=== PATIENT | female | born 1975 | race Caucasian/White ===

== ENCOUNTER 2017-02-07 13:05 | Emergency (ER) | payer MEDICAID ==
[~2017-02-07] VITALS: Ht 149.9 cm; Wt 58.0 kg
[~2017-02-07 13:05] MED LIST: CIPR-280 PO; DIPH25CA84 PO; OXYB15TA PO
[2017-02-07 13:08] VITALS: Ht 149.9 cm; Wt 58.0 kg
--- OUTSIDE RECORDS SUMMARY | 2017-02-07 13:09 | XMS REPORT | Summary of Care ---
Author Author Lei Bravo D.O. Organization Unknown Address [address] [place], [place] [id number] Phone Unavailable Care Team Providers Care Electrical Wirer Name Role Phone Lei Bravo D.O. 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) Status: Active Non-pressure chronic ulcer of other part of right foot, limited to breakdown of skin (707.15, L97.511) Status: Active Chronic low back pain (724.2, M54.5) Status: Active Urinary incontinence, mixed (788.33, N39.46) Status: Active Decubitus ulcer of right buttock, stage 3 (707.05, L89.313) Status: Active 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 * Start 16-Nov-2015 Active TraMADol HCl - 50 MG Oral Tablet take 1 tablet every 12 hours as needed * Quantity: 60 Refills: 0 Lei Bravo D.O. * Start 16-Nov-2015 Active Allergies and Adverse Reactions Name Dates Details Latex Exam Gloves MISC (Allergy) Status: Active Morphine Derivatives (Allergy) Status: Active Past Medical History Name Dates Details History of Hepatitis B virus infection, unspecified chronicity (070.30, B19.10 ) Status: Resolved Procedures Procedure Dates Details History of Laparoscopic Sling Operation For Stress Incontinence THYROID STIM. HORMONE 3602 Ordered: 23-Nov-2016 LIPID PROFILE 1184 Ordered: 23-Nov-2016 Comprehensive Metabolic Panel 1212 Ordered: 23-Nov-2016 CBC w/ Auto Diff 7150 Ordered: 23-Nov-2016 Immunization Name Dates Details Diphtheria-Tetanus Toxoids 6.7-5 LFU/0.5ML INJ on: 11-Nov-2014 Social History Name Dates Details - Status: Name Dates Details Current every day smoker Current every day smoker Vital Signs Date Test Result Details 24-Nov-2016 13:26 BP Systolic 112 mm[Hg] Status: Comments: Location: ; Position: BP Diastolic 70 mm[Hg] Status: Comments: Location: ; Position: Temperature 101.1 f Status: Heart Rate 69 /min Status: Comments: Location: ; Height 59 in Status: 17-Nov-2016 16:01 BP Systolic 116 mm[Hg] Status: Comments: Location: ; Position: BP Diastolic 82 mm[Hg] Status: Comments: Location: ; Position: Heart Rate 78 /min Status: Comments: Location: ; Physical Findings 95 Status: Comments: O2 Saturation Results Date Description Value Details Results not documented Plan of Care Name Dates Details Planned Observations Planned Goals not documented Planned Encounters Appointment; Provider: Lei Bravo D.O. On 16-Mar-2017 14:45 Instructions Name Dates Details Instructions not documented Encounters Appointment; Lei Bravo D.O. Encounter Diagnosis: Problem not documented On 17-Nov-2016 15:30 Appointment; Alex Stein M.D. Encounter Diagnosis: Problem not documented On 03-Aug-2016 08:00 Appointment; Lei Bravo D.O. Encounter Diagnosis: Problem not documented On 28-Jul-2016 14:15 Appointment; Lei Bravo D.O. Encounter Diagnosis: Problem not documented On 14:45 Appointment; Lei Bravo D.O. Encounter Diagnosis: Problem not documented On 24-Mar-2016 11:15 Appointment; Moi Pulido D.O. Encounter Diagnosis: Problem not documented On 09-Mar-2016 13:30 Appointment; Lei Bravo D.O. Encounter Diagnosis: Problem not documented On 07-Dec-2015 11:00 Appointment; Lei Bravo D.O. Encounter Diagnosis: Problem not documented On 29-Nov-2015 10:30 Appointment; Lei Bravo D.O. Encounter Diagnosis: Problem not documented On 16-Nov-2015 14:30
--- OUTSIDE RECORDS SUMMARY | 2017-02-07 13:09 | XMS REPORT | Continuity of Care Document ---
Author Author [facility] Organization [facility] Address Unknown Phone Unavailable Care Team Providers Care Delivery Rn Name Role Phone ANTWON, LISA Faust MD Primary Care Physician [phone] Insurance Providers Payer Name Policy Number Subscriber Name Relationship [facility] [employer] [id number] Carmen Hernandez 19 Self / Same As Patient Chief Complaint and Reason for Visit Chief Complaint SPINA BIFIDA;HOMELESS;SOCIAL PLACEMENT Reason for Visit Cellulitis of leg Spina bifida Impaired mobility Self-care deficit for bathing and hygiene Self-care deficit for dressing and grooming Self-care deficit for feeding Self-care deficit for toileting Problems Medical Problems Problem Onset Date Status Abdominal pain 03/21/2013 Resolved Chronic urinary tract infection 03/21/2013 Active Pressure sore on sacrum 03/21/2013 Resolved Paralysis 03/21/2013 Active Jaundice 05/10/2013 Resolved Pruritic rash 05/05/2013 Resolved Scalp laceration 05/29/2013 Resolved Cellulitis of leg 06/23/2013 Active Bronchitis 07/22/2013 Resolved Stasis ulcer 10/05/2013 Resolved Nausea and vomiting 10/18/2013 Resolved Vomiting 10/21/2013 Resolved Fall from chair or bed ~05/13/2014 Active Closed fracture of femur ~05/13/2014 Active Pain in lower limb ~05/13/2014 Active Spina bifida Unknown Active Impaired mobility Unknown Active Self-care deficit for bathing and hygiene 11/11/2014 Active Self-care deficit for dressing and grooming 11/11/2014 Active Self-care deficit for feeding 11/11/2014 Active Self-care deficit for toileting 11/11/2014 Active Medications Medication Dose Route Sig Days/Qty Instructions Order Date Discontinued Date Status Ciprofloxacin Hcl 250 Mg ORAL TWICE A DAY 14 Qty 06/10/12 03/28/13 Discontinued Citalopram Hydrobromide 40 Mg ORAL DAILY 03/21/13 05/13/14 Discontinued Oxybutynin Chloride 10 Mg ORAL TWICE A DAY 03/21/13 10/05/13 Discontinued Simvastatin 40 Mg ORAL DAILY 03/21/13 03/28/13 Discontinued Amoxicillin/Potassium Clav 2 Each ORAL THREE TIMES DAILY WITH MEALS 03/28/13 05/07/13 Discontinued Cyclobenzaprine Hcl 10 Mg ORAL THREE TIMES A DAY 03/28/13 05/13/14 Discontinued Hydromorphone Hcl 2 Mg ORAL THREE TIMES A DAY PRN 03/28/13 05/07/13 Discontinued Levofloxacin 750 Mg ORAL Daily @ 0700 03/28/13 05/07/13 Discontinued Ondansetron Hcl 4 Mg ORAL Every 3 hours PRN 03/28/13 05/07/13 Discontinued Oxycodone Hcl 20 Mg ORAL BEDTIME 03/28/13 05/10/13 Discontinued Zinc Oxide 1 Gm TOPICAL EVERY 4HRS 03/28/13 05/07/13 Discontinued Niacin/Simvastatin 2 Each ORAL BEDTIME 03/28/13 05/07/13 Discontinued Linaclotide 145 Mcg ORAL DAILY 03/28/13 05/07/13 Discontinued Mineral Oil 30 Ml ORAL FOUR TIMES DAILY 03/28/13 05/10/13 Discontinued Magnesium Hydroxide 2,400 Mg ORAL DAILY 03/28/13 05/10/13 Discontinued Hydromorphone Hcl 2 Mg ORAL EVERY 4HRS PRN 05/07/13 05/10/13 Discontinued Levofloxacin 500 Mg ORAL DAILY 05/07/13 10/05/13 Discontinued Cephalexin 500 Mg ORAL THREE TIMES A DAY 10 Qty 06/23/13 10/05/13 Discontinued Hydrocodone Bit/Acetaminophen 1 Tab ORAL EVERY 6 HOURS 15 Qty One po q6hrs prn severe pain 06/23/13 10/05/13 Discontinued Oxybutynin Chloride 15 Mg ORAL TWICE A DAY 10/05/13 Active Petrolatum 1 Applic TOPICAL TWICE A DAY 10/08/13 10/24/13 Discontinued Polyethylene Glycol 3350 17 Gm ORAL DAILY 10/08/13 12/17/14 Discontinued Silver Sulfadiazine 1 Applic TOPICAL DAILY 10/08/13 05/13/14 Discontinued Cephalexin 500 Mg ORAL FOUR TIMES DAILY 10/08/13 10/24/13 Discontinued Docusate Sodium 100 Mg ORAL TWICE A DAY 10/24/13 Active Magnesium Hydroxide 30 Ml ORAL FOUR TIMES DAILY PRN 10/24/13 Active Zolpidem Tartrate 10 Mg ORAL BEDTIME 10/24/13 05/13/14 Discontinued Oxycodone Hcl 20 Mg ORAL EVERY 12 HOURS 05/13/14 12/17/14 Discontinued Furosemide 40 Mg ORAL DAILY 05/13/14 Active Escitalopram Oxalate 20 Mg ORAL DAILY 05/13/14 Active Tramadol Hcl 200 Mg ORAL DAILY 05/13/14 12/17/14 Discontinued Amitriptyline Hcl 100 Mg ORAL DAILY 05/13/14 12/17/14 Discontinued Atorvastatin 10 Mg ORAL DAILY 05/13/14 Active Melatonin 3 Mg ORAL BEDTIME 05/13/14 Active Carisoprodol 1-2 Tab ORAL Q 6H PRN PRN PAIN 15 Qty 05/13/14 12/17/14 Discontinued Hydroxyzine Hcl 50 Mg ORAL FOUR TIMES DAILY PRN ANXIETY 05/13/14 Active Fluticasone Propionate 0 Gm NS DAILY 1 Qty 12/17/14 Active Ibuprofen 600 Mg ORAL FOUR TIMES DAILY PRN PAIN 90 Qty 12/17/14 Active Curlew-3 Acid Ethyl Esters 2 Gm ORAL TWICE A DAY 120 Qty 12/17/14 Active Polyethylene Glycol 17 Gm ORAL DAILY 1 Qty 12/17/14 Active Sennosides 8.6 Mg ORAL TWICE A DAY 60 Qty 12/17/14 Active Tizanidine Hcl 12 Mg ORAL EVERY 8 HRS ON SCHEDULE 90 Qty 12/17/14 Active Trazodone Hcl 150 Mg ORAL BEDTIME 30 Qty 12/17/14 Active [Tramadol Hcl] 50 Mg ORAL EVERY 4HRS PRN Pain 120 Qty 12/17/14 Active Social History No social history. Hospital Discharge Instructions Patient's Instructions Instructions Orders DISCHARGE: Discharge to:: HOME Home, Self Care Discharge Plan of Care Discharge Plan of Care #1 Problem: Lives alone Goal: Independent self care Instructions for meeting goal: Arrangements made for home assistance per Plan of Care Discharge Date 12/17/14 12:20pm Disposition 01 HOME OR SELF-CARE Prescriptions See Medications Section Functional Status No functional status results. Allergies, Adverse Reactions, Alerts Allergen Type Severity Reaction Status Last Updated Morphine Adverse Reaction Mild PANIC ATTACH Active 05/10/13 Orphenadrine Allergy Unknown ANXIOUSNESS Active 05/14/14 latex Allergy Mild rash Active 03/21/13 Immunizations No immunization records. Vital Signs Acute Vital Signs Vital Response Date/Time Temperature (Fahrenheit) 97.8 Pulse 74 bpm Respirations 18 Height 4 ft 11 in Weight 153 lb Body Mass Index 31.0 kg/m^2 Results Test Source Date Result Interp. Ref. Range Comments Absolute Band Neutrophils December 02, 2014 8:30am 0.0 # Collected by nurse? N Absolute Neutrophil June 23, 2013 7:30pm 0.0 # Acetaminophen Level May 10, 2013 6:40pm < 10.0 UG/ML L 10.0-30.0 Activated Partial Thromboplast Time March 22, 2013 10:15am 41.5 SEC H 25.0 -39.0 Collected by nurse? N Alanine Aminotransferase (ALT/SGPT) November 11, 2014 5:05pm 39 U/L N 30- 65 Collected by nurse? N Albumin November 11, 2014 5:05pm 3.8 G/DL N 3.4-5.0 Collected by nurse? N Albumin/Globulin Ratio November 11, 2014 5:05pm 1.225 N 1.1-1.8 Collected by nurse? N Alkaline Phosphatase November 11, 2014 5:05pm 144 U/L H 38-126 Collected by nurse? N Amylase Level October 18, 2013 12:28am 48 U/L N 25-115 Anion Gap November 29, 2014 5:30am 14.6 MEQ/L N 3-15 Collected by nurse ? N Anisocytosis October 08, 2013 5:50am Slight Collected by nurse? N Aspartate Amino Transf (AST/SGOT) November 11, 2014 5:05pm 25 U/L N 15- 37 Collected by nurse? N BUN/Creatinine Ratio November 29, 2014 5:30am 24 H 10-20 Collected by nurse? N Band Neutrophils % December 02, 2014 8:30am 0 % N 0-6 Collected by nurse? N Basophils # (Auto) October 19, 2013 6:50am 0.0 10^3/uL Collected by nurse? N Basophils % (Manual) December 02, 2014 8:30am 0 % N 0-2 Collected by nurse? N Basophils (%) (Auto) October 19, 2013 6:50am 1 % N 0-2 Collected by nurse? N Blood Morphology Comment December 02, 2014 8:30am Normal NORMAL Collected by nurse? N Blood Urea Nitrogen November 29, 2014 5:30am 20 mg/dL H 7-18 Collected by nurse? N C-Reactive Protein December 05, 2014 11:15am < 0.50 MG/DL 0.0-0.9 Collected by nurse? N Calcium Level November 29, 2014 5:30am 9.1 mg/dL N 8.8-10.8 Collected by nurse? N Calcium/Ionized Calcium Ratio November 11, 2014 5:05pm 3.9 mg/dL N 3.8- 4.6 Collected by nurse? N Calculated Osmolality November 11, 2014 5:05pm 278 MOSM/L L 280-300 Collected by nurse? N Carbon Dioxide Level November 29, 2014 5:30am 27 mmol/L N 22-29 Collected by nurse? N Chloride Level November 29, 2014 5:30am 103 mmol/L N 98-108 Collected by nurse? N Cholesterol Level August 31, 2014 5:15am 136 mg/dL 0-199 Creatinine November 29, 2014 5:30am 0.84 mg/dL DN 0.6-1.2 Collected by nurse? N D-Dimer June 23, 2013 7:30pm 1.40 ug/mL PH 0.20-0.41 Results called to Alex read back the results. Called by Yamini Angulo at 1952 Differential Total Cells Counted December 02, 2014 8:30am 100 Collected by nurse? N Eosinophils # December 02, 2014 8:30am 0.2 # Collected by nurse? N Eosinophils # (Auto) October 19, 2013 6:50am 0.1 10^3/uL Collected by nurse? N Eosinophils % (Manual) December 02, 2014 8:30am 3 % N 0-4 Collected by nurse? N Eosinophils (%) (Auto) October 19, 2013 6:50am 3 % N 0-4 Collected by nurse? N Estimat Glomerular Filtration Rate November 29, 2014 5:30am 91.8 Collected by nurse? N Estimated GFR (Non- November 29, 2014 5:30am 75.9 Collected by nurse? N Folate March 27, 2013 5:55am 8.1 ng/mL 2.0-20.0 Collected by nurse? N Glucose Level November 29, 2014 5:30am 82 mg/dL N 70-110 Collected by nurse? N HDL Cholesterol August 31, 2014 5:15am 26 mg/dL L 40-84 Hematocrit December 02, 2014 8:30am 38.40 % N 35.00-45.00 Collected by nurse? N Hemoglobin December 02, 2014 8:30am 12.7 g/dL N 12.0-15.5 Collected by nurse? N Hepatitis A IgM Antibody June 10, 2012 6:45pm Negative () Hepatitis B Core IgM Antibody June 10, 2012 6:45pm Negative () Hepatitis B DNA Quantitative (PCR) January 05, 2014 3:30am Undetected ( ) Reference Range:Undetected Result in log IU/mL is Undetected The quantification range of this assay is 20 IU/mL to 170,000,000 IU/mL (1.30 log IU/mL to 8.23 log IU/mL). Testing was performed by the [employer] AmpliPrep/GINA TaqMan HBV test, version 2.0 ([employer] Test Performed by: [place] [address] [place]: Art Henry III, M.D. Hepatitis B Surface Antigen June 10, 2012 6:45pm Negative () Hepatitis C Antibody June 10, 2012 6:45pm Negative () Hypochromasia October 08, 2013 5:50am Slight Collected by nurse? N Iron (send out) March 27, 2013 5:55am 33 ug/dL L 50-170 Collected by nurse? N LDL Cholesterol, Calculated August 31, 2014 5:15am 78 mg/dL 0-130 Lactic Acid Level March 22, 2013 10:15am 1.2 meq/L 0.5-2.2 Collected by nurse? N Lipase October 18, 2013 12:28am 55 U/L N 23-300 Lymphocytes # December 02, 2014 8:30am 1.5 # Collected by nurse? N Lymphocytes # (Auto) October 19, 2013 6:50am 0.8 X 10^3 Collected by nurse? N Lymphocytes % (Manual) December 02, 2014 8:30am 20 % N 20-46 Collected by nurse? N Lymphocytes (%) (Auto) October 19, 2013 6:50am 23 % N 20-46 Collected by nurse? N Mean Corpuscular Hemoglobin December 02, 2014 8:30am 28.9 PG N 26.0- 34.0 Collected by nurse? N Mean Corpuscular Hemoglobin Concent December 02, 2014 8:30am 33.1 g/dL N 31.0-37.0 Collected by nurse? N Mean Corpuscular Volume December 02, 2014 8:30am 87 FL N 80-100 Collected by nurse? N Mean Platelet Volume December 02, 2014 8:30am 9.2 FL N 6.0-9.5 Collected by nurse? N Metamyelocytes % October 08, 2013 5:50am 5 % H 0-1 Collected by nurse ? N Microcytosis May 10, 2013 6:40pm Slight Monocytes # December 02, 2014 8:30am 0.5 # Collected by nurse? N Monocytes # (Auto) October 19, 2013 6:50am 0.5 X 10^3 Collected by nurse? N Monocytes % (Manual) December 02, 2014 8:30am 7 % N 3-11 Collected by nurse? N Monocytes (%) (Auto) October 19, 2013 6:50am 14 % H 3-11 Collected by nurse? N Neutrophils # December 02, 2014 8:30am 5.4 # Collected by nurse? N Neutrophils # (Auto) October 19, 2013 6:50am 2.1 X 10^3 Collected by nurse? N Neutrophils (%) (Auto) October 19, 2013 6:50am 59 % N 51-67 Collected by nurse? N Platelet Count December 02, 2014 8:30am 280 10^3uL N 150-450 Collected by nurse? N Polychromasia March 25, 2013 5:30am Slight Collected by nurse? N Potassium Level November 29, 2014 5:30am 4.6 mmol/L N 3.5-5.1 Collected by nurse? N Prothromb Time International Ratio June 23, 2013 7:30pm 1.0 N 0.8-1.4 Prothrombin Time June 23, 2013 7:30pm 13.2 SEC N 12.3-14.4 Red Blood Count December 02, 2014 8:30am 4.40 10^6uL N 4.00-5.00 Collected by nurse? N Red Cell Distribution Width December 02, 2014 8:30am 15.1 % N 11.8-15.6 Collected by nurse? N Rotavirus Antigen (LAB) January 31, 2014 5:50am Negative Negative Segmented Neutrophils % December 02, 2014 8:30am 70 % H 51-67 Collected by nurse? N Sodium Level November 29, 2014 5:30am 141 mmol/L N 135-150 Collected by nurse? N Total Bilirubin November 11, 2014 5:05pm < 0.1 MG/DL L 0.1-1.0 Collected by nurse? N Total Creatine Kinase March 25, 2013 2:40pm 27 U/L L 30-135 Collected by nurse? N Total Iron Binding Capacity March 27, 2013 5:55am 175 ug/dL L 260-445 Collected by nurse? N Total Protein November 11, 2014 5:05pm 6.9 G/DL N 6.4-8.5 Collected by nurse? N Transferrin % Saturation March 27, 2013 5:55am 19 % 11-46 Collected by nurse? N Triglycerides Level August 31, 2014 5:15am 158 mg/dL H 0-149 Ur Tricyclic Antidepressants Screen July 06, 2014 12:45pm Positive H Negative Urine Amorphous Sediment July 06, 2014 12:45pm 2+ /HPF H Urine Amphetamines Screen July 06, 2014 12:45pm Positive H Negative Urine Bacteria August 06, 2014 9:30am 3+ /HPF H Urine Barbiturates Screen July 06, 2014 12:45pm Negative Negative Urine Benzodiazepines Screen July 06, 2014 12:45pm Negative Negative Urine Bilirubin August 06, 2014 9:30am Negative Negative Urine Blood August 06, 2014 9:30am Negative Negative Urine Cannabinoids Screen July 06, 2014 12:45pm Negative Negative Urine Clarity August 06, 2014 9:30am Cloudy H Urine Cocaine Screen July 06, 2014 12:45pm Negative Negative Urine Collection Type August 06, 2014 9:30am Clean catch Urine Color August 06, 2014 9:30am Dark yellow Urine Glucose (UA) August 06, 2014 9:30am Negative Negative Urine Ketones August 06, 2014 9:30am Negative Negative Urine Leukocyte Esterase August 06, 2014 9:30am Negative Negative Urine Methadone Screen July 06, 2014 12:45pm Negative Negative Urine Methamphetamines Screen July 06, 2014 12:45pm Negative NEGATIVE Urine Mucus August 06, 2014 9:30am 1+ Urine Nitrite August 06, 2014 9:30am Positive H Negative Urine Opiates Screen July 06, 2014 12:45pm Positive H Negative Urine Oxycodone Screen July 06, 2014 12:45pm Positive H NEGATIVE Urine Phencyclidine Screen July 06, 2014 12:45pm Negative Negative Phencyclidine testing by this method can showcross-reactivity with several common medications such as venlafaxine, dextromethorphan, and diphenhydramine. Submission of any positive sample for confirmatory testing is recommended. Urine Propoxyphene Screen July 06, 2014 12:45pm Negative NEGATIVE Results of this screen are qualitative and are presumptiveresults. A more specific method (i.e. GC/MS) must be used if confirmation of results is indicated. Urine Protein August 06, 2014 9:30am Negative Negative Urine RBC August 06, 2014 9:30am None seen /HPF Urine RBC (Auto) June 10, 2012 6:55pm 2+ H Negative Urine Specific [place] August 06, 2014 9:30am 1.025 1.005-1.030 Urine Squamous Epithelial Cells August 06, 2014 9:30am None /LPF Urine Urobilinogen August 06, 2014 9:30am 0.2 mg/dL 0.2-1.0 Urine WBC August 06, 2014 9:30am 10-20 /HPF H Urine pH August 06, 2014 9:30am 6.0 5.0 - 8.0 VLDL Cholesterol August 31, 2014 5:15am 32 mg/dL H 0-28 Vancomycin Level Trough March 25, 2013 2:40pm < 5.0 UG/ML L 10.0-15.0 Collected by nurse? N Vitamin B12 Level March 27, 2013 5:55am 665 pg/mL 211-911 Collected by nurse? N Volume Urine Centrifuged August 06, 2014 9:30am 10 ml White Blood Count December 02, 2014 8:30am 7.73 10^3uL N 4.0-11.0 Collected by nurse? N Blood Culture Peripheral-:Lab Indicates After Collectio May 05, 2013 11: 00pm No Growth in 5 days Ova and Parasites Stool January 31, 2014 5:50am Urine Culture Urine-Clean Catch August 06, 2014 9:30am Wound Culture Wound, Superficial-Foot, Right October 05, 2013 5:00pm Procedures No known history of procedures. Encounters Encounter Location Date/Time Discharged Inpatient [facility] 11/11/14 3:04pm Recent Diagnosis Cellulitis of leg Spina bifida Impaired mobility Self-care deficit for bathing and hygiene Self-care deficit for dressing and grooming Self-care deficit for feeding Self-care deficit for toileting
--- OUTSIDE RECORDS SUMMARY | 2017-02-07 13:09 | XMS REPORT | Continuity of Care Document ---
Author Author [facility] Organization [facility] Address Unknown Phone Unavailable Care Team Providers Care Boot And Saddle Repair Person Name Role Phone Jerrod Small Primary Care Physician [phone] Source Comments Some departments are not documenting in the electronic medical record. If you do not see the information that you expected, contact Release of Information in the Health Information Management department at [phone] for further assistance in locating additional records.[facility] Active Allergies and Adverse Reactions Allergen Noted Date Severity Reactions Comments Latex, Natural Rubber 05/11/2013 HIVES Morphine 05/11/2013 MENTAL STATUS CHANGES Current Medications Prescription Sig. Disp. Refills Start End Date Status Date citalopram (CELEXA) 40 mg Take 40 mg by mouth Active tablet daily. cyclobenzaprine Take 10 mg by mouth three Active (FLEXERIL) 10 mg tablet times daily as needed. oxybutynin (DITROPAN) 5 Take 10 mg by mouth twice Active mg tablet daily. vitamins, multi Take 1 Tab by mouth 30 Tab 0 05/16/20 Active w/minerals 27-0.4 mg Tab daily. 13 ascorbic acid (VITAMIN-C) Take 1 Tab by mouth 10 Tab 0 05/16/20 Active 500 mg tablet daily. Stop 05/25/13. March 10 purchase over the counter (OTC) zinc sulfate 220 mg (50 Take 1 Cap by mouth 10 Cap 0 05/16/20 Active mg elemental zinc) daily. Stop 05/25/13. 13 capsule oxyCODone (ROXICODONE) 5 Take 1-2 Tabs by mouth 30 Tab 0 05/16/20 Active mg tablet every 6 hours as needed 13 for Pain Earliest Fill Date: 05/16/13 hydrOXYzine (ATARAX) 25 Take 1 Tab by mouth every 30 Tab 2 05/16/20 Active mg tablet 8 hours as needed for 13 Itching. Active Problems Problem Noted Date Neurogenic bladder 05/13/2013 Hepatitis B infection 05/12/2013 Acute liver failure 05/11/2013 Pressure ulcer of coccyx 05/11/2013 Poor dentition 05/11/2013 Spina bifida (HCC) 05/11/2013 Anemia 05/11/2013 Social History Tobacco Use Types Packs/Day Years Used Date Never Assessed Last Filed Vital Signs Vital Sign Reading Time Taken Blood Pressure 89/58 05/16/2013 2:59 PM CDT Pulse 89 05/16/2013 2:59 PM CDT Temperature 37.1 C (98.8 F) 05/16/2013 2:59 PM CDT Respiratory Rate - - Height 1.499 m (4' 11") 05/12/2013 4:00 AM CDT Weight 53.52 kg (117 lb 15.8 oz) 05/15/2013 5:45 AM CDT Body Mass Index 23.82 05/15/2013 5:45 AM CDT Oxygen Saturation 100% 05/16/2013 2:59 PM CDT Plan of Care Health Maintenance Due Date Last Done Comments Physical (Comprehensive) 1983 Exam Pertussis Vaccine 1987 Tetanus Vaccine 1993 Cervical Cancer Screening 1997 Breast Cancer Screening 2016 Influenza Vaccine 06/29/2017 Results from Last 3 Months Not on file
--- OUTSIDE RECORDS SUMMARY | 2017-02-07 13:09 | XMS REPORT ---
Author Author [facility] Organization Unknown Address Unknown Phone Unavailable Care Team Providers Care Laborer Livestock Name Role Phone DO CUEVAS ROBERT PP Unavailable Reason For Visit Chief Complaint BILAT LOWER LEGS Social History Functional Status Vital Signs Results Problems Encounter Diagnosis No relevant problems exist. Encounters Encounter Diagnosis No relevant problems exist. Plan of Care Procedures No relevant procedures performed. Immunizations No immunizations administered or ordered. Hospital Course Hospital Discharge Instructions Allergies, Adverse Reactions, Alerts * Latex Allergy has not been assessed. * IV Contrast Allergy has not been assessed. Medication Medication reconciliation has not been performed.
--- OUTSIDE RECORDS SUMMARY | 2017-02-07 13:10 | XMS REPORT ---
Author Author GENERATED, SYSTEM Organization Unknown Address Unknown Phone Unavailable Care Team Providers Care Ambulatory Analyst Name Role Phone DO CUEVAS ROBERT PP Unavailable Reason For Visit Chief Complaint R BUTTOCK ABCESS Social History Functional Status Vital Signs Results Chemistry from 11/24/2016 4:24 PMSODIUM 134 MMOL/L L (136-145 MMOL/L) POTASSIUM 3.9 MMOL/L (3.5-5.1 MMOL/L) CHLORIDE 100 MMOL/L (98-107 MMOL/L) TCO2 22.0 MMOL/L (21.0-32.0 MMOL/L) *ANION GAP 12.0 MMOL/L (8.0-16.0 MMOL/L) BUN 10 MG/DL (7-18 MG/DL) CREATININE 0.58 MG/DL (0.55-1.02 MG/DL) *BUN/CREATININE RATIO 17.2 H (9.1-17.0 ) GLUCOSE 52 MG/DL L (65-99 MG/DL) *GFR EST NON AFR BELIZEAN >90 ML/MIN *GFR EST AFR AMER >90 ML/MIN CALCIUM 8.2 MG/DL L (8.5-10.1 MG/DL) BILIRUBIN TOTAL 0.40 MG/DL (0.20-1.00 MG/DL) TOTAL PROTEIN 7.2 GM/DL (6.4-8.2 GM/DL) ALBUMIN 2.6 GM/DL L (3.4-5.0 GM/DL) *GLOBULIN 4.6 GM/DL H (2.3-3.5 GM/DL) *A/G RATIO 0.6 MG/DL L (1.5-2.2 MG/DL) ALK PHOS 78 U/L (46-116 U/L) ALT (SGPT) 11 U/L L (16-63 U/L) AST (SGOT) 8 U/L L (15-37 U/L) C-REACTIVE PROTEIN 13.84 MG/DL H (0.00-0.30 MG/DL) TEST NEGATIVE (NEGATIVE ) LACTIC ACID 0.9 mmol/L (0.9-1.7 mmol/L) PROCALCITONIN <0.05 NG/ML (0.05-0.50 NG/ML) Hematology from 11/24/2016 4:24 PMWBC 7.0 X10e3/UL (3.6-11.2 X10e3/UL) RBC 3.81 X10e6/UL (3.63-4.92 X10e6/UL) HEMOGLOBIN 11.2 G/DL (11.0-14.3 G/DL) HEMATOCRIT 32.8 % (31.2-41.9 %) *MCV 86.0 FL (79.0-98.0 FL) *MCH 29.2 PG (27.0-33.0 PG) *MCHC 34.0 G/DL (32.0-36.0 G/DL) *RDW 12.8 % (12.3-17.0 %) *RDWSD 39.4 (37.1-47.8 ) PLATELET 273 X10e3/UL (159-386 X10e3/UL) *MPV 7.4 FL (7.4-10.4 FL) AUTOMATED DIFF PERFORMED SEGS 77.8 % *LYMPHOCYTES 9.2 % *MONOCYTES 12.2 % *EOSINOPHILS 0.3 % *BASOPHILS 0.5 % *ABSOLUTE NEUTROPHILS 5.40 X10e3/UL (1.80-7.80 X10e3/UL) *ABSOLUTE LYMPHOCYTES 0.60 X10e3/UL L (1.00-3.00 X10e3/UL) *ABSOLUTE MONOCYTES 0.90 X10e3/UL (0.30-1.00 X10e3/UL) *ABSOLUTE EOSINOPHILS 0.00 X10e3/UL (0.00-0.50 X10e3/UL) *ABSOLUTE BASOPHILS 0.00 X10e3/UL (0.00-0.20 X10e3/UL) SED RATE 100 MM/HR H (0-20 MM/HR) Urinalysis from 11/24/2016 3:42 PM*URINE COLOR DK YELLOW (STRAW/YELL/DK YELL ) *URINE APPEARANCE CLEAR (CLEAR ) URINE PH 6.0 (5.0-8.0 ) URINE SPECIFIC GRAVITY 1.025 (<=1.005->=1.030 ) *URINE GLUCOSE NEGATIVE MG/DL (NEGATIVE MG/DL) *URINE BILIRUBIN NEGATIVE (NEGATIVE ) *URINE KETONES >80 MG/DL A (NEGATIVE MG/DL) *URINE BLOOD TRACE-INTACT A (NEGATIVE ) *URINE PROTEIN NEGATIVE MG/DL (NEGATIVE MG/DL) *URINE UROBILINOGEN 1.0 EU/DL (0.2-1.0 EU/DL) *URINE NITRITES POSITIVE A (NEGATIVE ) *URINE LEUKOCYTES NEGATIVE (NEGATIVE ) *MICROSCOPIC EXAM PERFORMED PERFORMED *WBC URINE 5-10 /HPF A (0-5 /HPF) *RBC URINE 0-1 /HPF (0-1 /HPF) *SQUAMOUS EP. CELLS MODERATE /LPF A (NEG-FEW /LPF) *BACTERIA MANY /HPF A (NEGATIVE /HPF) Coagulation from 11/24/2016 4:24 PM*PROTHROMBIN TIME 11.8 SECONDS H (9.4-11.5 SECONDS) *INR 1.1 (0.9-1.1 ) PARTIAL THROMBOPLASTIN TIME 31.3 SECONDS H (23.0-31.0 SECONDS) Microbiology from 11/24/2016 4:31 PM* CULTURE BLOOD (Preliminary Result) Specimen Number: [id number] Sample Collection Date/Time: 11/24/2016 4:31 PM Specimen Source: Blood PERIPHRL CULTURE BLOOD: No growth after 24 hours of incubation, testing to continue for an additional 96 hours. Microbiology from 11/24/2016 4:24 PM* CULTURE BLOOD (Preliminary Result) Specimen Number: [id number] Sample Collection Date/Time: 11/24/2016 4:24 PM Specimen Source: Blood PERIPHRL CULTURE BLOOD: No growth after 24 hours of incubation, testing to continue for an additional 96 hours. Microbiology from 11/24/2016 3:42 PM* CULTURE URINE (Preliminary Result) Specimen Number: [id number] Sample Collection Date/Time: 11/24/2016 3:42 PM Specimen Source: Urine No Method Given CULTURE URINE: Escherichia coli >100,000 cfu/ml *ISOLATE1: Escherichia coli 1 Comment Result Value Escherichia coli Result Status Preliminary Result Ampicillin >=32 R Ampicillin/sulbactam >=32 R Aztreonam <=1 S Cefazolin <=4 S Cefepime <=1 S Ceftazidime <=1 S Ceftriaxone <=1 S Ertapenem <=0.5 S ESBL Neg - Gentamicin <=1 S Levofloxacin <=0.12 S Meropenem <=0.25 S Nitrofurantoin <=16 S Piperacillin/tazobactam <=4 S Tobramycin <=1 S Trimethoprim/Sulfa <=20 S Microbiology from 11/24/2016 3:30 PM* CULTURE WOUND Specimen Number: [id number] Sample Collection Date/Time: 11/24/2016 3:30 PM Specimen Source: Wound Right buttock CULTURE WOUND: Normal skin jordi *GRAM STAIN: Rare Epithelial cells Rare RBC's No WBC's Many Gram positive cocci Many Gram negative bacilli * *GRAM STAIN Specimen Number: [id number] Sample Collection Date/Time: 11/24/2016 3:30 PM Specimen Source: Wound Right buttock *GRAM STAIN: Rare Epithelial cells Rare RBC's No WBC's Many Gram positive cocci Many Gram negative bacilli CULTURE WOUND: Normal skin jordi DX Radiology from 11/24/2016 5:41 PMCHEST 2 VIEWS History: Fever with decubitus ulcer. Technique: 2 VIEW CHEST Priors: None Findings: No acute infiltrate, pneumothorax or pleural effusions are identified. The heart size is normal. Impression: No evidence acute cardiopulmonary process. Electronically signed by: Dontae Dickinson MD Dictated: 11/25/2016 12:46 CT Scan from 11/24/2016 5:26 PMCT PELVIS W/ CONTRAST History: Fever with decubitus ulcer. Technique: Study was performed with 95 mL Isovue 300 contrast. Two-dimensional only reconstructions were performed. Priors: None. Findings: There is a spina bifida defect involving the lower lumbar spine protrusion of the thecal sac posteriorly. 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 There is a moderate right hip joint effusion. Septic arthritis cannot be excluded. There is a large decubitus ulcer containing gas and fluid overlying the right ischial tuberosity. There is cortical destruction of the tuberosity consistent osteomyelitis. There is moderate soft tissue edema and swelling about the distal rectum suspicious for additional cellulitis. There is also a decubitus ulcer overlying the left ischial tuberosity. Impression: Large decubitus ulcer overlying the right ischial tuberosity with associated osteomyelitis and cellulitis. Cellulitis extends into the perirectal fat as well. 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 Right hip septic arthritis cannot be excluded. Electronically signed by: Dontae Dickinson MD Dictated: 11/25/2016 12:50 Problems Encounter Diagnosis No relevant problems exist. Additional Problems * Acute Pain Comment:Problem resolved by [facility] Work[facility] upon Discharge, Status :Resolved. * Altered Mental Status Comment:Problem resolved by [facility] Work[facility] upon Discharge, Status:Resolved. * Cellulitis Comment:Problem resolved by [facility] Work[facility] upon Discharge, Status :Resolved. * Fall Risk Comment:Problem resolved by [facility] Work[facility] upon Discharge, Status: Resolved. * Mobility Impairment Comment:Problem resolved by [facility] Work[facility] upon Discharge, Status:Resolved. * Skin Integrity Impairment Risk Comment:Problem resolved by [facility] Work[facility] upon Discharge, Status:Resolved. Encounters Encounter Diagnosis No relevant problems exist. Plan of Care Procedures No relevant procedures performed. Immunizations No immunizations administered or ordered. Hospital Course Hospital Discharge Instructions Allergies, Adverse Reactions, Alerts * Latex, Natural Rubber causes Rash. * Latex Allergy has not been assessed. * IV Contrast Allergy has not been assessed. Medication Medication reconciliation has not been performed.
--- OUTSIDE RECORDS SUMMARY | 2017-02-07 13:10 | XMS REPORT | Continuity of Care Document ---
Author Author [facility] Address Unknown Phone Unavailable Allergies Active Description Code Type Severity Reaction Onset Reported/Identified Relationship to Patient Clinical Status Yes latex [id number] Drug Allergy Mild rash 03/21/2013 Yes morphine [id number] Drug Allergy Mild PANIC ATTACH 05/10/2013 Yes orphenadrine [id number] Drug Allergy Unknown ANXIOUSNESS 05/14/2014 Medications Problems Date Dx Coded Attending Type Code Diagnosis Diagnosed By 06/10/2012 Ot 788.99 06/10/2012 Ot 790.4 03/28/2013 Ot 038.9 03/28/2013 Ot 285.9 03/28/2013 Ot 305.1 03/28/2013 Ot 311 03/28/2013 Ot 343.0 03/28/2013 Ot 564.09 03/28/2013 Ot 596.54 03/28/2013 Ot 599.0 03/28/2013 Ot 707.05 03/28/2013 Ot 707.09 03/28/2013 Ot 707.22 03/28/2013 Ot 707.23 03/28/2013 Ot 741.90 03/28/2013 Ot 995.91 03/28/2013 Ot E937.9 05/07/2013 Ot 041.49 05/07/2013 Ot 573.3 05/07/2013 Ot 599.0 05/07/2013 Ot 741.90 05/07/2013 Ot E849.0 05/07/2013 Ot E942.2 05/07/2013 Ot V45.2 05/10/2013 Ot 272.4 05/10/2013 Ot 311 05/10/2013 Ot 344.1 05/10/2013 Ot 572.8 05/10/2013 Ot 698.8 05/10/2013 Ot 741.90 05/21/2013 Ot V64.2 05/29/2013 SUMI NG MD Ot 305.1 05/29/2013 SUMI NG MD Ot 344.1 05/29/2013 BERENICE MD, SUMI C Ot 741.90 05/29/2013 BERENICE SAWYER, SUMI C Ot 873.0 05/29/2013 BERENICE SAWYER, SUMI C Ot 959.01 05/29/2013 BERENICE SAWYER, SUMI C Ot E884.3 06/23/2013 DANIE SAWYER, MATEUSZ R Ot 682.6 06/23/2013 DANIE SAWYER, CHILD R Ot 741.90 06/23/2013 DANIE SAWYER, CHILD R Ot V46.3 07/21/2013 ISIDRO SAWYER, DICK P Ot 692.9 07/21/2013 ISIDRO SAWYER, DICK P Ot 782.1 10/08/2013 SARAI SAWYER, GLORIA R Ot 305.1 10/08/2013 SARAI SAWYER, GLORIA R Ot 344.30 10/08/2013 SARAI SAWYER, GLORIA R Ot 427.89 10/08/2013 SARAI SAWYER, GLORIA R Ot 682.7 10/08/2013 SARAI SAWYER, GLORIA R Ot 707.15 10/08/2013 SARAI SAWYER, GLORIA R Ot 728.2 10/08/2013 SARAI SAWYER, GLORIA R Ot 741.90 10/08/2013 SARAI SAWYER, GLORIA R Ot 788.29 10/08/2013 SARAI SAWYER, GLORIA R Ot 791.9 10/08/2013 SARAI SAWYER, GLORIA R Ot V12.09 10/08/2013 SARAI SAWYER, GLORIA R Ot V14.5 10/08/2013 SARAI SAWYER, GLORIA R Ot V15.07 10/08/2013 SARAI SAWYER, GLORIA R Ot V65.3 10/08/2013 SARAI SAWYER, GLORIA R Ot V85.21 10/24/2013 CLAUDIA SAWYER, PIPER P Ot 311 10/24/2013 CLAUDIA SAWYER, PIPER P Ot 338.29 10/24/2013 CLAUDIA SAWYER, PIPER P Ot 564.00 10/24/2013 CLAUDIA SAWYER, PIPER P Ot 596.54 10/24/2013 CLAUDIA SAWYER, PIPER P Ot 741.90 10/24/2013 CLAUDIA SAWYER, PIPER P Ot 780.52 10/24/2013 CLAUDIA SAWYER, PIPER P Ot 781.0 10/24/2013 CLAUDIA SAWYER, PIPER P Ot 787.01 10/24/2013 CLAUDIA SAWYER, PIPER P Ot 945.32 10/24/2013 CLAUDIA SAWYER, PIPER P Ot E000.9 10/24/2013 CLAUDIA SAWYER, PIPER P Ot E030 10/24/2013 CLAUDIA SAWYER, PIPER P Ot E849.9 10/24/2013 CLAUDIA SAWYER, PIPER P Ot E899 10/24/2013 CLAUDIA SAWYER, PIPER P Ot V15.07 10/24/2013 CLAUDIA SAWYER, PIPER P Ot V46.3 05/13/2014 JESSICA SWAN, SELINA Mac Ot 729.5 05/13/2014 JESSICA SWAN, SELINA Mac Ot 741.90 05/13/2014 JESSICA SWAN, SELINA Mac Ot 821.01 05/13/2014 SELINA LOPEZ DO Ot E849.7 05/13/2014 SELINA LOPEZ DO Ot E888.8 11/11/2014 Ot V66.9 11/11/2014 CHUN SAWYER, KIRK Mac Ot 892.0 11/11/2014 DANIE SAWYER, CHILD R Ot 787.01 11/11/2014 ANTWON SAWYER, LISA Faust Ot 686.9 11/11/2014 ANTWON SAWYER, LISA M Ot V02.61 11/11/2014 ANTWON SAWYER, LISA M Ot 787.91 11/11/2014 ANTWON SAWYER, LISA M Ot 486 11/11/2014 ANTWON SAWYER, LISA M Ot 751.4 11/11/2014 ANTWON SAWYER, LISA M Ot 136.9 11/11/2014 ANTWON SAWYER, LISA M Ot 465.9 11/11/2014 ANTWON SAWYER, LISA M Ot 272.0 11/11/2014 ANTWON SAWYER, LISA M Ot 591 11/11/2014 ANTWON SAWYER, LISA M Ot 724.2 11/11/2014 ANTWON SAWYER, LISA M Ot 741.93 11/11/2014 ANTWON SAWYER, LISA M Ot 793.19 11/11/2014 SELINA LOPEZ DO Ot 729.5 11/11/2014 SELINA LOPEZ DO Ot E888.9 11/11/2014 ANTWON SAWYER, LISA M Ot 741.93 11/11/2014 ANTWON SAWYER, LISA M Ot 311 11/11/2014 ANTWON SAWYER, LISA M Ot 272.4 11/11/2014 ANTWON SAWYER, LISA M Ot 741.93 11/11/2014 ANTWON SAWYER, LISA M Ot 288.60 11/11/2014 ANTWON SAWYER, LISA M Ot E888.9 11/11/2014 ANTWON SAWYER, LISA M Ot 272.4 11/11/2014 ANTWON SAWYER, LISA M Ot 728.85 12/16/2014 Ot V66.9 12/16/2014 CHUN SAWYER, KIRK W Ot 892.0 12/16/2014 DANIE SAWYER, MATEUSZ R Ot 787.01 12/16/2014 ANTWON SAWYER, LISA M Ot 686.9 12/16/2014 ANTWON SAWYER, LISA M Ot V02.61 12/16/2014 ANTWON SAWYER, LISA M Ot 787.91 12/16/2014 ANTWON SAWYER, LISA M Ot 486 12/16/2014 ANTWON SAWYER, LISA M Ot 751.4 12/16/2014 ANTWON SAWYER, LISA M Ot 136.9 12/16/2014 ANTWON SAWYER, LISA M Ot 465.9 12/16/2014 ANTWON SAWYER, LISA M Ot 272.0 12/16/2014 ANTWON SAWYER, LISA M Ot 591 12/16/2014 ANTWON SAWYER, LISA M Ot 724.2 12/16/2014 ANTWON SAWYER, LISA M Ot 741.93 12/16/2014 ANTWON SAWYER, LISA M Ot 793.19 12/16/2014 SELINA LOPEZ DO Ot 729.5 12/16/2014 SELINA LOPEZ DO Ot E888.9 12/16/2014 ANTWON SAWYER, LISA M Ot 741.93 12/16/2014 ANTWON SAWYER, LISA Faust Ot 311 12/16/2014 ANTWON SAWYER, LISA M Ot 272.4 12/16/2014 ANTWON SAWYER, LISA M Ot 741.93 12/16/2014 ANTWON SAWYER, LISA M Ot 288.60 12/16/2014 ANTWON SAWYER, LISA Faust Ot E888.9 12/16/2014 ANTWON SAWYER, LISA Faust Ot 272.4 12/16/2014 ANTWON SAWYER, LISA Faust Ot 728.85 12/16/2014 PIPER MARC MD Ot 741.90 12/18/2014 Ot V66.9 12/18/2014 CHUN SAWYER, KIRK W Ot 892.0 12/18/2014 DANIE SAWYER, CHILD R Ot 787.01 12/18/2014 ANTWON SAWYER, LISA Faust Ot 686.9 12/18/2014 ANTWON SAWYER, LISA Faust Ot V02.61 12/18/2014 ANTWON SAWYER, LISA M Ot 787.91 12/18/2014 ANTWON SAWYER, LISA Faust Ot 486 12/18/2014 ANTWON SAWYER, LISA Faust Ot 751.4 12/18/2014 ANTWON SAWYER, LISA Faust Ot 136.9 12/18/2014 ANTWON SAWYER, LISA Faust Ot 465.9 12/18/2014 ANTWON SAWYER, LISA Faust Ot 272.0 12/18/2014 ANTWON SAWYER, LISA Faust Ot 591 12/18/2014 ANTWON SAWYER, LISA Fuast Ot 724.2 12/18/2014 ANTWON SAWYER, LISA Faust Ot 741.93 12/18/2014 ANTWON SAWYER, LISA Faust Ot 793.19 12/18/2014 SELINA LOPEZ DO Ot 729.5 12/18/2014 SELINA LOPEZ DO Ot E888.9 12/18/2014 ANTWON SAWYER, LISA Faust Ot 741.93 12/18/2014 ANTWON SAWYER, LISA Faust Ot 311 12/18/2014 ANTWON SAWYER, LISA Faust Ot 272.4 12/18/2014 ANTWON SAWYER, LISA Faust Ot 741.93 12/18/2014 ANTWON SAWYER, LISA Faust Ot 288.60 12/18/2014 ANTWON SAWYER, LISA Faust Ot E888.9 12/18/2014 ANTWON SAWYER, LISA Faust Ot 272.4 12/18/2014 ANTWON SAWYER, LISA Faust Ot 728.85 12/18/2014 PIPER MARC MD Ot 741.90 12/18/2014 PIPER MARC MD Ot 741.90 12/18/2014 PIPER MARC MD J Ot 741.90 12/18/2014 Ot V66.9 12/18/2014 CHUN SAWYER, KIRK W Ot 892.0 12/18/2014 DANIE SAWYER, MATEUSZ R Ot 787.01 12/18/2014 ANTWON SAWYER, LISA Faust Ot 686.9 12/18/2014 ANTWON SAWYER, LISA Faust Ot V02.61 12/18/2014 ANTWON SAWYER, LISA Faust Ot 787.91 12/18/2014 ANTWON SAWYER, LISA Faust Ot 486 12/18/2014 LISA KAPOOR MD Ot 751.4 12/18/2014 ANTWON SAWYER, LISA Faust Ot 136.9 12/18/2014 LISA KAPOOR MD Ot 465.9 12/18/2014 LISA KAPOOR MD Ot 272.0 12/18/2014 LISA KAPOOR MD Ot 591 12/18/2014 LISA KAPORO MD Ot 724.2 12/18/2014 LISA KAPOOR MD Ot 741.93 12/18/2014 LISA KAPOOR MD Ot 793.19 12/18/2014 SELINA LOPEZ DO Ot 729.5 12/18/2014 SELINA LOPEZ DO Ot E888.9 12/18/2014 LISA KAPOOR MD Ot 741.93 12/18/2014 LISA KAPOOR MD Ot 311 12/18/2014 LISA KAPOOR MD Ot 272.4 12/18/2014 LISA KAPOOR MD Ot 741.93 12/18/2014 LISA KAPOOR MD Ot 288.60 12/18/2014 LISA KAPOOR MD Ot E888.9 12/18/2014 LISA KAPOOR MD Ot 272.4 12/18/2014 LISA KAPOOR MD Ot 728.85 12/18/2014 PIPER MARC MD Ot 741.90 12/22/2014 LISA KAPOOR MD Ot 741.93 Procedures Results Test Result Range CULTURE WOUND - 11/24/16 15:30 CULTURE WOUND Normal skin jordi NRG URINALYSIS (CULTURE PRN) - 11/24/16 15:42 *URINE APPEARANCE CLEAR CLEAR *URINE BILIRUBIN NEGATIVE NEGATIVE *URINE BLOOD TRACE-INTACT NEGATIVE *URINE GLUCOSE NEGATIVE NEGATIVE *URINE KETONES >80 NEGATIVE *URINE LEUKOCYTES NEGATIVE NEGATIVE *URINE NITRITES POSITIVE NEGATIVE URINE PH 6.0 5.0-8.0 *URINE PROTEIN NEGATIVE NEGATIVE URINE SPECIFIC GRAVITY 1.025 <=1.005->= 1.030 *URINE UROBILINOGEN 1.0 0.2-1.0 *URINE COLOR DK YELLOW STRAW/YELL/DK YELL URINE MICROSCOPIC - 11/24/16 15:42 WBC 5-10 /[HPF] 0-5 RBC 0-1 /[HPF] 0-1 MICROSCOPIC EXAM PERFORMED PERFORMED NRG SQUAMOUS EP. CELLS MODERATE /[LPF] NEG- FEW BACTERIA MANY /[HPF] NEGATIVE CULTURE URINE - 11/24/16 15:42 CULTURE URINE >100,000 cfu/ml NRG ISOLATE1 - 11/24/16 15:42 ORGANISM Escherichia coli NRG Ampicillin >=32 NRG Ampicillin/sulbactam >=32 NRG Cefazolin <=4 NRG Cefepime <=1 NRG Ceftazidime <=1 NRG Ceftriaxone <=1 NRG Ertapenem <=0.5 NRG ESBL Neg NRG Gentamicin <=1 NRG Levofloxacin <=0.12 NRG Meropenem <=0.25 NRG Nitrofurantoin <=16 NRG Piperacillin/tazobactam <=4 NRG Tobramycin <=1 NRG Trimethoprim/Sulfa <=20 NRG Aztreonam <=1 NRG LACTIC ACID - 11/24/16 16:24 LACTIC ACID 0.9 0.9-1.7 CBC WITH PLATELET AND DIFFERENTIAL - 11/24/16 16:24 SEGS 77.8 % NRG *BASOPHILS 0.5 % NRG *EOSINOPHILS 0.3 % NRG AUTOMATED DIFF PERFORMED NRG *LYMPHOCYTES 9.2 % NRG *MONOCYTES 12.2 % NRG *ABSOLUTE BASOPHILS 0.00 10*3/uL 0.00- 0.20 *ABSOLUTE EOSINOPHILS 0.00 10*3/uL 0.00- 0.50 *ABSOLUTE LYMPHOCYTES 0.60 10*3/uL 1.00- 3.00 *ABSOLUTE MONOCYTES 0.90 10*3/uL 0.30- 1.00 *ABSOLUTE NEUTROPHILS 5.40 10*3/uL 1.80- 7.80 MPV 7.4 fL 7.4-10.4 PLATELETS 273 10*3/uL 159-386 WBC 7.0 10*3/uL 3.6-11.2 RBC 3.81 3.63-4.92 HEMOGLOBIN 11.2 11.0-14.3 HEMATOCRIT 32.8 % 31.2-41.9 MCV 86.0 fL 79.0-98.0 MCH 29.2 pg 27.0-33.0 MCHC 34.0 32.0-36.0 RDW 12.8 % 12.3-17.0 RDWSD 39.4 37.1-47.8 PARTIAL THROMBOPLASTIN TIME - 11/24/16 16:24 PARTIAL THROMBOPLASTIN TIME 31.3 s 23.0- 31.0 PROTHROMBIN TIME - 11/24/16 16:24 *INR 1.1 0.9-1.1 *PROTHROMBIN TIME 11.8 s 9.4-11.5 COMPREHENSIVE METABOLIC PANEL - 11/24/16 16:24 CHLORIDE 100 mmol/L 98-107 BILIFUBIN TOTAL 0.40 0.20-1.00 TOTAL PROTEIN 7.2 6.4-8.2 ALBUMIN 2.6 3.4-5.0 *GLOBULIN 4.6 2.3-3.5 *A/G RATIO 0.6 1.5-2.2 ALK PHOS 78 U/L 46-116 ALT (SGPT) 11 U/L 16-63 AST (SGOT) 8 U/L 15-37 TEST - 11/24/16 16:24 TEST NEGATIVE NEGATIVE GFR ESTIMATION - 11/24/16 16:24 *GFR EST NON AFR EMIRATI >90 mL/min NR *GRFA EST AFR AMER >90 mL/min NR C-REACTIVE PROTEIN - 11/24/16 16:24 C-REACTIVE PROTEIN 13.84 0.00-0.30 ERYTH. SED. RATE - 11/24/16 16:24 ERYTH. SED. RATE 100 mm/h 0-20 PROCALCITONIN - 11/24/16 16:24 PROCALCITONIN <0.05 ng/mL 0.05-0.50 CULTURE BLOOD - 11/24/16 16:24 CULTURE BLOOD No growth after 5 days of incubation. NRG CULTURE BLOOD - 11/24/16 16:31 CULTURE BLOOD No growth after 5 days of incubation. NRG Encounters ACCT No. Visit Date/Time Discharge Status Pt. Type Provider Facility Loc./Unit Complaint [id number] 11/11/2014 11:59:00 2014 23:59:59 CLS Outpatient TARI SAWYER, [facility] [id number] 09/23/2014 05:51:00 2013 23:59:59 CLS Outpatient ANTWON SAWYER [facility] [id number] 08/31/2014 05:43:00 2013 23:59:59 CLS Outpatient ANTWON SAWYER [facility] [id number] 08/06/2014 09:54:00 2013 23:59:59 CLS Outpatient ANTWON SAWYER [facility] [id number] 07/28/2014 05:52:00 2013 23:59:59 CLS Outpatient ANTWON SAWYER [facility] [id number] 07/06/2014 12:51:00 2013 23:59:59 CLS Outpatient ANTWON SAWYER [facility] [id number] 06/23/2014 05:50:00 2013 23:59:59 CLS Outpatient ANTWON SAWYER [facility] [id number] 05/13/2014 01:35:00 2013 23:59:59 CLS Outpatient [facility] EMS [id number] 05/13/2014 01:42:00 2013 03:27:00 DIS Emergency [facility] ED [id number] 05/11/2014 12:50:00 2013 23:59:59 CLS Outpatient ANTWON SAWYER [facility] [id number] 03/20/2014 06:45:00 2013 23:59:59 CLS Outpatient ANTWON SAWYER [facility] LAB [id number] 02/16/2014 03:48:00 2013 23:59:59 CLS Outpatient ANTWON SAWYER [facility] [id number] 02/07/2014 09:35:00 2013 23:59:59 CLS Outpatient ANTWON SAWYER, [facility] LAB [id number] 02/02/2014 16:33:00 2013 23:59:59 CLS Outpatient ANTWON SAWYER, [facility] RAD [id number] 01/31/2014 05:51:00 2013 23:59:59 CLS Outpatient ANTWON SAWYER, [facility] LAB [id number] 01/05/2014 04:24:00 2013 23:59:59 CLS Outpatient ANTWON SAWYER, [facility] [id number] 11/03/2013 07:45:00 2013 23:59:59 CLS Outpatient ANTWON SAWYER, [facility] LAB [id number] 10/18/2013 11:30:00 2012 11:53:00 DIS Inpatient CLAUDIA SAWYER, [facility] MED/SURG [id number] 10/18/2013 00:01:00 2012 23:59:59 CLS Outpatient DANIE SAWYER, [facility] EMS [id number] 10/05/2013 17:45:00 2012 17:40:00 DIS Inpatient SARAI SAWYER, [facility] MED/SURG [id number] 10/05/2013 16:06:00 2012 23:59:59 CLS Outpatient CHUN SAWYER, [facility] [id number] 07/21/2013 23:08:00 2012 23:50:00 DIS Emergency ISIDRO SAWYER, [facility] ED [id number] 06/23/2013 19:01:00 2012 22:00:00 DIS Emergency DANIE SAWYER, [facility] ED [id number] 05/29/2013 22:34:00 2012 23:04:00 DIS Emergency BERENICE SAWYER, [facility] ED [id number] 11/11/2014 15:04:00 ACT Inpatient ANTWON SAWYER, [facility] MED/SURG [id number] 05/10/2013 21:36:00 Document Registration [id number] 05/10/2013 17:54:00 Document Registration [id number] 05/05/2013 14:38:00 Document Registration [id number] 03/31/2013 13:00:00 Document Registration [id number] 03/21/2013 21:00:00 Document Registration [id number] 06/10/2012 18:18:00 Document Registration
--- OUTSIDE RECORDS SUMMARY | 2017-02-07 13:10 | XMS REPORT ---
Author Author GENERATED, SYSTEM Organization Unknown Address Unknown Phone Unavailable Care Team Providers Care Mid Level Clinician Name Role Phone DO CUEVAS ROBERT PP Unavailable Reason For Visit Chief Complaint FEVER Social History Functional Status Vital Signs Results [...]
--- OUTSIDE RECORDS SUMMARY | 2017-02-07 13:10 | XMS REPORT | Summary of Care ---
Author Author Lei Bravo D.O. Organization Unknown Address [address], [place] [id number] Phone Unavailable Care Team Providers Care Tile Layer Drainage Name Role Phone Lei Bravo D.O. Unavailable [...] low back pain (724.2, M54.5) Status: Active Spina bifida (741.90, Q05.9) Status: Active Urinary incontinence, mixed (788.33, N39.46) Status: Active Neurogenic bladder (596.54, N31.9) Status: Active Medications Name Dates Details Oxybutynin Chloride ER 15 MG Oral Tablet Extended Release 24 Hour Take one tablet by mouth daily Quantity: 90 Lawrence D.O.Lei * Start 16-Nov-2015 Active TraMADol HCl - 50 MG Oral Tablet take 1 tablet every 12 hours as needed * Quantity: 60 Refills: 0 Lawrence D.O.Lei * Start 16-Nov-2015 Active Allergies and Adverse Reactions Name Dates Details Latex Exam Gloves MISC (Allergy) Status: Active Morphine Derivatives (Allergy) Status: Active Past Medical History Name Dates Details History of Hepatitis B virus infection, unspecified chronicity (070.30, B19.10 ) Status: Resolved Procedures Procedure Dates Details History of Laparoscopic Sling Operation For Stress Incontinence Procedures not documented Immunization Name Dates Details Diphtheria-Tetanus Toxoids 6.7-5 LFU/0.5ML INJ on: 11-Nov-2014 Social History Name Dates Details - Status: Name Dates Details Current every day smoker Current every day smoker Vital Signs Date Test Result Details 17-Nov-2016 16:01 BP Systolic 116 mm[Hg] Status: [...] Provider: Lei Bravo D.O. On 16-Mar-2017 14:45 Interventions Provided Medication Changes* TraMADol HCl - 50 MG Oral Tablet - Renew with Changes Instructions Name Dates Details Instructions not documented Encounters Appointment; Alex Stein M.D. Encounter Diagnosis: Problem [...]
--- OUTSIDE RECORDS SUMMARY | 2017-02-07 13:11 | XMS REPORT ---
Author Author GENERATED, SYSTEM Organization Unknown Address Unknown Phone Unavailable Care Team Providers Care Alarm Technician Name Role Phone DO CUEVAS ROBERT PP [...]
--- OUTSIDE RECORDS SUMMARY | 2017-02-07 13:11 | XMS REPORT ---
Author [facility] Organization Unknown Address Unknown Phone Unavailable Care Team Providers Care Paper Cup Machine Tender Name Role Phone DO CUEVAS ROBERT PP Unavailable Reason For Visit Reason for Visit from 03/20/2016 4:00 AM:* Pt Stated Reason for Adm : cellulitis Chief Complaint CELLULITIS Social History Social History from 03/23/2016 1:25 PM:* Tobacco Use? : Current Everyday Smoker Social History from 03/20/2016 2:50 PM:* Tobacco Use? : Current Everyday Smoker Social History from 03/20/2016 4:00 AM:* Tobacco Use? : Current Everyday Smoker Functional Status Functional Status from 03/23/2016 8:51 AM:* LOC : Alert * Oriented To : Person,Place,Time,Event * Weight Bearing Status : No wt bearing * Assist Level : Dependent * # Assists : 2 Functional Status from 03/22/2016 8:20 PM:* LOC : Alert * Oriented To : Person,Place,Time,Event * Weight Bearing Status : No wt bearing * Assist Level : Partial * # Assists : 1 Functional Status from 03/22/2016 7:13 PM:* # Assists : 1 Functional Status from 03/22/2016 10:00 AM:* # Assists : Independent Functional Status from 03/22/2016 9:09 AM:* LOC : Alert * Oriented To : Person,Place,Time,Event * Weight Bearing Status : No wt bearing * Assist Level : Dependent * # Assists : 2 Functional Status from 03/21/2016 8:56 PM:* LOC : Alert * Oriented To : Person,Place,Time * Weight Bearing Status : Full * Assist Level : Partial * # Assists : 2 Functional Status from 03/21/2016 9:44 AM:* # Assists : 1 Functional Status from 03/21/2016 8:32 AM:* LOC : Alert * Oriented To : Person,Place,Time,Event * Weight Bearing Status : Partial * Assist Level : Partial * # Assists : 2 Functional Status from 03/20/2016 9:46 PM:* LOC : Alert * Oriented To : Person,Place,Time,Event * Weight Bearing Status : Partial * Assist Level : Partial * # Assists : 2 Functional Status from 03/20/2016 11:18 AM:* LOC : Alert * Oriented To : Person,Place,Time * Weight Bearing Status : No wt bearing * Assist Level : Partial * # Assists : 2 Functional Status from 03/20/2016 4:00 AM:* LOC : Alert * Oriented To : Person,Place,Time,Event * Weight Bearing Status : Partial * Assist Level : Partial * # Assists : 2 Vital Signs Hospital Vital Signs from 03/23/2016 10:28 AM:* Height : 4/11 ft,in * Temperature : 99.4 F * Pulse : 79 * Respirations : 18 * BP : 110/63 Hospital Vital Signs from 03/23/2016 6:18 AM:* Height : 4/11 ft,in * Temperature : 98.3 F * Pulse : 78 * Respirations : 16 * BP : 108/67 Hospital Vital Signs from 03/22/2016 10:43 PM:* Height : 4/11 ft,in * Temperature : 98.5 F * Pulse : 85 * Respirations : 16 * BP : 114/67 Hospital Vital Signs from 03/22/2016 7:30 PM:* Height : 4/11 ft,in * Temperature : 98.0 F * Pulse : 80 * Respirations : 18 * BP : 99/55 Hospital Vital Signs from 03/22/2016 2:23 PM:* Height : 4/11 ft,in * Temperature : 99.4 F * Pulse : 88 * Respirations : 16 * BP : 106/70 Hospital Vital Signs from 03/22/2016 11:44 AM:* Height : 4/11 ft,in * Temperature : 98.5 F * Pulse : 53 * Respirations : 16 * BP : 157/67 Hospital Vital Signs from 03/22/2016 7:09 AM:* Height : 4/11 ft,in * Temperature : 96.5 F * Pulse : 85 * Respirations : 16 * BP : 107/55 Hospital Vital Signs from 03/22/2016 2:45 AM:* Height : 4/11 ft,in * Temperature : 98.8 F * Pulse : 90 * Respirations : 16 * BP : 97/70 Hospital Vital Signs from 03/21/2016 10:07 PM:* Height : 4/11 ft,in * Temperature : 98.5 F * Pulse : 79 * Respirations : 18 * BP : 105/60 Hospital Vital Signs from 03/21/2016 7:04 PM:* Height : 4/11 ft,in * Temperature : 97.7 F * Pulse : 95 * Respirations : 18 * BP : 114/55 Hospital Vital Signs from 03/21/2016 2:16 PM:* Height : 4/11 ft,in * Temperature : 98.5 F * Pulse : 91 * Respirations : 20 * BP : 111/67 Hospital Vital Signs from 03/21/2016 10:02 AM:* Weight : 56.5/ kg * Height : 4/11 ft,in Hospital Vital Signs from 03/21/2016 10:01 AM:* Height : 4/11 ft,in * Temperature : 98.7 F * Pulse : 84 * Respirations : 18 * BP : 103/66 Hospital Vital Signs from 03/21/2016 6:10 AM:* Height : 4/11 ft,in * Temperature : 98.3 F * Pulse : 81 * Respirations : 18 * BP : 93/52 Hospital Vital Signs from 03/21/2016 2:20 AM:* Height : 4/11 ft,in * Temperature : 98.5 F * Pulse : 84 * Respirations : 18 * BP : 103/58 Hospital Vital Signs from 03/20/2016 10:16 PM:* Height : 4/11 ft,in * Temperature : 98.8 F * Pulse : 95 * Respirations : 18 * BP : 99/56 Hospital Vital Signs from 03/20/2016 7:08 PM:* Height : 4/11 ft,in * Temperature : 98.5 F * Pulse : 90 * Respirations : 18 * BP : 107/65 Hospital Vital Signs from 03/20/2016 1:50 PM:* Height : 4/11 ft,in * Temperature : 98.1 F * Pulse : 102 * Respirations : 20 * BP : 101/71 Hospital Vital Signs from 03/20/2016 10:39 AM:* Height : 4/11 ft,in * Temperature : 98.6 F * Pulse : 85 * Respirations : 20 * BP : 117/66 Hospital Vital Signs from 03/20/2016 7:13 AM:* Height : 4/11 ft,in * Temperature : 96.2 F * Pulse : 102 * Respirations : 20 * BP : 107/59 Hospital Vital Signs from 03/20/2016 4:00 AM:* Weight : 56.5/ kg * Height : 4/11 ft,in Hospital Vital Signs from 03/20/2016 2:40 AM:* Weight : 56.5/ kg * Height : 4/11 ft,in * Temperature : 97.5 F * Pulse : 95 * Respirations : 20 * BP : 132/82 Results DX Radiology from 03/21/2016 1:06 PMFOOT LEFT 3 VIEWS History: Ulcer . Technique: 3view foot Priors: None. Findings: There is generalized osteopenia. There is diffuse soft tissue swelling about the foot. There are mild degenerative changes. No acute fracture or dislocation is demonstrated. No obvious osseous erosions are demonstrated. Impression: No acute osseous abnormality. Electronically signed by: Antonio Quinonez MD Dictated: 03/21/2016 14:06 MRI from 03/22/2016 4:21 PMMRI FOOT LEFT W/O_W/CONTRAST History: Dorsal foot wound. Technique: Pre and Post contrast images were performed after the administration of milliliters of Prohance intravenous contrast. Priors: None. Findings: There are no areas of suspicious bony edema or enhancement to suggest osteomyelitis. There is mild subcutaneous edema at the dorsal aspect of the mid to distal foot. There is mild focal edema dorsal to the 2nd 3rd metatarsophalangeal joints. No discrete abscess formation is seen. There is severe atrophy of the foot musculature, with essentially no muscle tissue seen. Impression: There no findings to suggest osteomyelitis. Mild dorsal soft tissue swelling. Electronically signed by: Antonio Quinonez MD Dictated: 03/23/2016 08:23 Problems Encounter Diagnosis * Acute Pain Status:Active. * Altered Mental Status Status:Active. * Cellulitis Status:Active. * Fall Risk Status:Active. * Mobility Impairment Status:Active. * Skin Integrity Impairment Risk Status:Active. Encounters Encounter Diagnosis * Acute Pain Status:Active. * Altered Mental Status Status:Active. * Cellulitis Status:Active. * Fall Risk Status:Active. * Mobility Impairment Status:Active. * Skin Integrity Impairment Risk Status:Active. Plan of Care Follow-up Appointments from 03/23/2016 1:25 PM:* #1 Office appointment: : Dr. Ledbetter * #1 Date/Time : 04/25/2016 8:30 AM * Address # 1 : [facility]: [address] [place]- [phone] or * #2 Office appointment: : Dr. Cuevas * #2 Date/Time : 03/24/2016 11:15 AM * Address # 2 : [facility]: [address] [place] - or * #3 Office appointment: : BRIGITTE Canseco * #3 Date/Time : 03/30/2016 1:40 AM * Address # 3 : [facility]: [address] [place]- or Treatment Plan from 03/23/2016 11:20 AM:* Care Management Note : Patient aware of discharge for today. Home health strongly encouraged for wound care and patient refuses. She states she and her boyfriend will manage it. Patient would not give reason as to why she doesn't want home health, just that she doesn't feel it is necessary. Dr Balderrama and nurse informed. Nurse will provide education with boyfriend on wound care and patient plans to follow up with Dr. Macias. Patient voices no discharge needs. Treatment Plan from 03/22/2016 3:34 PM:* Care Management Note : Met with patient to discuss discharge planning. She lives at home with significant other. She plans to return home at dismissal. She states she does not receive any home care services and does not anticipate she'll need any help at discharge. Patient states she hopes to be able to return home tomorrow. If outpatient iv' s needed will assist with setting this up. Social work assessment complete and patient rising risk for readmission. Treatment Plan from 03/22/2016 2:38 PM:* Care Management Note : Dr. Macias has seen patient with orders for MRI of left foot and arterial doppler of BLE. ID has been consulted for antibiotic recommendations with plan to continue current empiric antibiotics pending culture results. Clinical information faxed to [facility] per request. Care management will continue to follow and assess for discharge needs. Treatment Plan from 03/21/2016 11:00 AM:* Care Management Note : Skin/can technician has assessed patient with wound care instructions and recommendation for Podiatry consult. Patient continues to receive IV antibiotics and Subcut heparin. Blood cultures are negative to date.Podiatry consult is pending. Per discussion with Dr. Balderrama anticipate patient will require about a week of IV antibiotics. Appropriate for inpatient. Order received to change to inpatient. Care management will follow, assess for discharge needs and provide clinical information to commercial insurance upon request. Treatment Plan from 03/20/2016 11:54 AM:* Care Management Note : Patient is outpatient observation receiving IV antibiotics for treatment of cellulitis. POC discussed with Dr. Foster. Patient is afebrile without leukocytosis. He is ordering a wound/skin consult with anticipation of discharge in AM. Will leave outpatient observation at this time. Care management will continue to follow. Procedures No relevant procedures performed. Immunizations No immunizations administered or ordered. Hospital Course Hospital Discharge Instructions How to care for yourself at home from 03/23/2016 1:25 PM:* Discharge Activity : Activity as tolerated,May Shower * Discharge Diet : Modification as given by physician * Discharge Diet: : Low Sodium * Discharge Wound Care : Keep dressings dry,Change dressings as necessary, Notify your physician if the following develops: redness, swelling, drainage or color of drainage changes, odor or increased pain. * Call your doctor if: : Fever over 101 F or severe chills,Chest pain or other unexplained symptoms,Tingling or numbness develops,A sudden increase or decrease in weight,You have persistent or worsening symptoms,If you have Heart Failure and you gain 3 pounds within 1 week or your symptoms worsen. (Weigh at home tomorrow morning) * Specific Discharge Teaching Instructions provided: : Yes * Discharge on Warfarin : No Allergies, Adverse Reactions, Alerts * Latex, Natural Rubber causes Rash. * No Latex Allergy. * No IV Contrast Allergy. Medication It is the responsibility of the patient or patient sales representative church furniture to confirm the list of medications with either the patient's personal care provider or the patient's follow-up care provider to ensure the patient has an appropriate list of medications to take at home. Discharge medications New medications* clindamycin HCl (Cleocin) 300 mg Capsule, Ordered By: BRIGITTE HART Directions: 1 capsule oral three times a day Continued medications* citalopram 40 mg Tablet, Ordered By: PAULETTE BALDERRAMA MD Directions: 1 tablet oral daily * traMADol 50 mg Tablet, Ordered By: PAULETTE BALDERRAMA MD Directions: 1 tablet oral EVERY 4 TO 6 HOURS PRN pain Changed medications* oxybutynin chloride 10 mg tablet extended release 24hr, Ordered By: PAULETTE BALDERRAMA MD Directions: 1 tablet oral twice a day Stopped medications* None
--- OUTSIDE RECORDS SUMMARY | 2017-02-07 13:11 | XMS REPORT | Referral Summary ---
Author Author [facility] Organization [facility] Address Unknown Phone Unavailable Care Team Providers Care Physical Chemist Name Role Phone No PCP, Pt States Primary Care Physician [phone] Encounter VC Date(s): 11/24/16 - 11/30/16 [facility] [address] [place] [address] Discharge Diagnosis: Acute osteomyelitis Discharge Disposition: [address] [place] [address] Attending Physician: Claudia Rivera DO Admitting Physician: Franki Soler MD Vital Signs Most recent to 1 oldest [Reference Range]: Temperature Oral 36.7 degC [35.8-37.3 degC] (11/30/16 7:00 PM) Temperature Skin 36.4 degC [36-37 degC] (11/27/16 2:00 PM) Temperature Temporal 36.7 degC Artery [36.3-37.8 (11/27/16 12:42 PM) degC] Peripheral Pulse 8 bpm Rate [60-100 bpm] *LOW* (11/30/16 7:00 PM) Heart Rate Monitored 72 bpm [60-100 bpm] (11/29/16 4:13 PM) Respiratory Rate 16 br/min [14-20 br/min] (11/30/16 7:00 PM) Blood Pressure 104/72 mmHg [90-140/60-90 mmHg] (11/30/16 7:00 PM) Mean Arterial 54 mmHg Pressure, Cuff (11/27/16 1:30 PM) SpO2 95 % (11/30/16 7:00 PM) Remote Telemetry Ongoing (11/28/16 7:00 AM) Problem List Condition Effective Dates Status Health Status Informant Acute Active pain(Confirmed) Alteration in Active nutrition(Confirmed) 1 At risk for Active infection(Confirmed) 2 At risk of pressure Active sore(Confirmed) Impaired skin Active integrity(Confirmed) 3 Pressure ulcer stage Active 3(Confirmed) 1Problem added automatically by system based on initiation of Alteration in Nutrition Plan of Care 2Problem added automatically by system based on initiation of At Risk for Infection in Nutrition Plan of Care 3Problem added automatically by system based on initiation of Impaired Skin Integrity Plan of Care Allergies, Adverse Reactions, Alerts Substance Reaction Severity Status Latex Medium Active Medications Benadryl 25 mg oral tablet 25 mg 1 tabs, Oral, q6hr, Pruritus/Itching, 0 Refill(s) Start Date: 11/30/16 Status: Ordered ceFAZolin 1 g/10 mL injectable solution IV Push, q8hr (scheduled), 0 Refill(s) Start Date: 11/30/16 Status: Ordered Colace 100 mg oral capsule 100 mg 1 caps, Oral, BID, 0 Refill(s) Start Date: 11/30/16 Status: Ordered Dakins Quarter Strength 0.125% topical solution 1 ruthie, Topical, BID, 0 Refill(s) Start Date: 11/30/16 Status: Ordered lactulose 10 g/15 mL oral syrup 20 g 30 mL, Oral, TID, Constipation, 0 Refill(s) Start Date: 11/30/16 Status: Ordered metroNIDAZOLE 500 mg oral tablet 500 mg 1 tabs, Oral, BID, 0 Refill(s) Start Date: 11/30/16 Status: Ordered Milk of Magnesia 2,400 mg 30 mL, Oral, Daily, Constipation, 0 Refill(s) Start Date: 11/30/16 Status: Ordered MiraLax 17 g 1 packets, Oral, Daily, 0 Refill(s) Start Date: 11/30/16 Status: Ordered [place] 5 mg-325 mg oral tablet 1-2 tabs, Oral, q4hr, Pain Moderate (4-6), 0 Refill(s) Start Date: 11/30/16 Status: Ordered oxybutynin 10 mg, Oral, BID, 0 Refill(s) Start Date: 11/24/16 Status: Ordered traMADol 50 mg, Oral, q4hr, as needed for pain, 0 Refill(s) Start Date: 11/24/16 Status: Ordered Results Hematology Most recent to 1 oldest [Reference Range]: WBC [4.8-10.8 4.2 10*3/uL 10*3/uL] *LOW* (11/30/16 4:42 AM) RBC [4.00-5.20] 3.38 *LOW* (11/30/16 4:42 AM) Hgb [12.0-16.0 9.4 gm/dL gm/dL] *LOW* (11/30/16 4:42 AM) Hct [37.0-47.0 %] 30.1 % *LOW* (11/30/16 4:42 AM) MCV [82.0-99.0 fL] 89.1 fL (11/30/16 4:42 AM) MCH [27.0-32.0 pg] 27.8 pg (11/30/16 4:42 AM) MCHC [32.0-36.0 31.2 gm/dL gm/dL] *LOW* (11/30/16 4:42 AM) RDW [11.5-14.5 %] 13.1 % (11/30/16 4:42 AM) Platelet [150-400 285 10*3/uL 10*3/uL] (11/30/16 4:42 AM) MPV [9.4-12.4 fL] 9.5 fL (11/30/16 4:42 AM) Immature 0.5 % Granulocytes (11/30/16 4:42 AM) [0.0-1.0 %] Neutrophils [51-75 46 % %] *LOW* (11/30/16 4:42 AM) Lymphocytes [20-46 38 % %] (11/30/16 4:42 AM) Monocytes [4-11 %] 9 % (11/30/16 4:42 AM) Eosinophils [0-4 %] 5 % *HI* (11/30/16 4:42 AM) Basophils [0-2 %] 1 % (11/30/16 4:42 AM) Neutro Absolute 1.94 [1.90-7.00] (11/30/16 4:42 AM) Lymph Absolute 1.61 [0.80-3.30] (11/30/16 4:42 AM) [place] Absolute 0.39 [0.30-1.00] (11/30/16 4:42 AM) Eos Absolute 0.20 [0.00-0.50] (11/30/16 4:42 AM) Baso Absolute 0.04 [0.00-0.20] (11/30/16 4:42 AM) Nucleated RBC 0.0 /100 WBC Automated [0 /100 (11/30/16 4:42 AM) WBC] Sed Rate [0-23] 64 *HI* (11/30/16 4:42 AM) Chemistry Most recent to 1 oldest [Reference Range]: Sodium Lvl [136-144 138 mEq/L mEq/L] (11/30/16 4:42 AM) Potassium Lvl 4.4 mEq/L [3.6-5.1 mEq/L] (11/30/16 4:42 AM) Chloride [99-109 106 mEq/L mEq/L] (11/30/16 4:42 AM) CO2 [22-32 mEq/L] 27 mEq/L (11/30/16 4:42 AM) AGAP [3-20] 5 (11/30/16 4:42 AM) BUN [4-20 mg/dL] 9 mg/dL (11/30/16 4:42 AM) Glucose Lvl [70-100 85 mg/dL mg/dL] (11/30/16 4:42 AM) Creatinine Lvl 0.58 mg/dL [0.44-1.03 mg/dL] (11/30/16 4:42 AM) eGFR [>60] >60 1 (11/30/16 4:42 AM) Calcium Lvl 8.5 mg/dL [8.6-10.0 mg/dL] *LOW* (11/30/16 4:42 AM) Albumin Lvl [3.5-4.8 2.1 gm/dL gm/dL] *LOW* (11/30/16 4:42 AM) Total Protein 5.4 gm/dL [6.1-7.9 gm/dL] *LOW* (11/30/16 4:42 AM) Globulin [1.9-4.3 3.3 gm/dL gm/dL] (11/30/16 4:42 AM) ALT [14-54 U/L] 7 U/L *LOW* (11/30/16 4:42 AM) AST [15-41 U/L] 12 U/L *LOW* (11/30/16 4:42 AM) Alk Phos [26-104 53 U/L U/L] (11/30/16 4:42 AM) Bili Total [0.2-1.2 0.1 mg/dL 2 mg/dL] *LOW* (11/30/16 4:42 AM) Magnesium Lvl 1.9 mg/dL [1.8-2.5 mg/dL] (11/30/16 4:42 AM) Phosphorus [2.4-4.7 4.6 mg/dL 3 mg/dL] (11/30/16 4:42 AM) Prealbumin [18-38 3 mg/dL mg/dL] *LOW* (11/26/16 6:58 AM) Blood Glucose, 108 mg/dL Capillary [70-100 *HI* mg/dL] (11/27/16 5:11 PM) Hgb A1c [4.1-5.6 %] 4.7 % (11/25/16 7:55 AM) eAvg Glucose 88.2 mg/dL (11/25/16 7:55 AM) 1Result Comment: Multiply eGFR results by 1.21 for race. 2Result Comment: Naproxen, specifically the metabolite O-desmethylnaproxen, may cause spurious elevation in Total Bilirubin levels. Corrected result; previously reported as DL on 11/30/16 at 05:32 by ISAIAS 3Result Comment: High dosages of liposomal Amphotericin B (AmBisome) therapy or other drug preparations that use a liposomal envelope to facilitate drug delivery may cause falsely elevated results for phosphorus. Therapeutic Drug Monitoring Most recent to 1 oldest [Reference Range]: Vancomycin Tr 19.5 ug/mL 1 [10.0-20.0 ug/mL] (11/28/16 10:00 AM) 1Result Comment: Trough vancomycin concentrations of 15-20 mcg/mL are recommended for complicated infections such as bacteremia, osteomyelitis, endocarditis, meningitis, and hospital acquired pneumonia. Toxicology Most recent to 1 oldest [Reference Range]: Ethanol Lvl Not Detected (11/25/16 7:55 AM) Blood Bank Results Most recent to 1 oldest [Reference Range]: ABO/Rh A POS (11/26/16 11:21 AM) Antibody Screen Tube NEG (11/26/16 11:21 AM) Microbiology Reports TEST: Tissue Culture and Smear STATUS: Order in Progress BODY SITE: SOURCE: Tissue-Surgical, collected in [place] COLLECTED DATE/TIME: 11/27/16 12:00 PM Tissue Culture - ORGANISM:Staphylococcus coagulase negative TEST: Anaerobic Culture STATUS: Order in Progress BODY SITE: SOURCE: Tissue-Surgical, collected in [place] COLLECTED DATE/TIME: 11/27/16 12:00 PM Anaerobic Culture No anaerobes isolated TEST: Wound Culture and Smear STATUS: Auth (Verified) BODY SITE: Buttock SOURCE: Aspirate COLLECTED DATE/TIME: 11/25/16 12:35 AM Gram Smear Few (1-5/OIF) white blood cells Rare (0-1/OIF) squamous epithelial cells Rare (0-1/OIF) gram positive rods OIF=Oil Immersion Field LPF=Low Power Field ORGANISM:Staphylococcus aureus ORGANISM:Haemophilus parainfluenzae TEST: Anaerobic Culture STATUS: Auth (Verified) BODY SITE: Buttock SOURCE: Aspirate COLLECTED DATE/TIME: 11/25/16 12:35 AM Anaerobic Culture Mixed anaerobic jordi, including listed organisms. No further workup will be performed on this culture. Prevotella species small amount Susceptibility not performed ORGANISM:Prevotella species Immunizations Given and Recorded Vaccine Date Status Refusal Reason influenza virus vaccine, inactivated 11/25/16 Given Procedures Procedure Date Related Diagnosis Body Site Insertion of peripherally inserted central 11/29/16 venous catheter (PICC), without subcutaneous port or pump; age 5 years or older.. Debridement Ischial (Right)1 11/27/16 Anterior spinal artery Arteriovenous shunt - device Arthritis, hip section - at term 1auto-populated from documented surgical case Social History Social History Type Response Smoking Status Current every day smoker; Tobacco use per day: 1 Pack; Number of years: 22 Assessment and Plan No data available for this section
--- OUTSIDE RECORDS SUMMARY | 2017-02-07 13:11 | XMS REPORT | Continuity of Care Document ---
Author Author [facility] Organization [facility] Address Unknown Phone Unavailable Care Team Providers Care Pier Master Name Role Phone ROMÁN KAPOOR Primary Care Physician [phone] Insurance Providers Guarantor Carmen Hernandez Adolph Address [address] [place] [address] Email DENIED/NO TO PORTAL Payer [facility] Policy Number [id number] Subscriber's Name Carmen Hernandez Relationship 18 Self Effective Date 16 Expiration Date 16 Chief Complaint and Reason for Visit Chief Complaint Wound Recheck Reason for Visit Cellulitis of both feet Problems Past Problems Medical Problem Onset Date Cellulitis of both feet Unknown Medications Current Home Medications Medication Dose Units Route Directions Days Qty Instructions Start Date Ciprofloxacin Hcl 500 Mg Tablet 1 Tab Oral Every 12 Hours 10 Days 20 Tablet 08/06/16 Diphenhydramine Hcl (Benadryl) 25 Mg Capsule 25 Mg Oral As Needed as needed for Allery Symptoms 08/06/16 Oxybutynin Chloride (Oxybutynin Chloride Er) 15 Mg Tab.er.24 15 Mg Oral Daily 08/06/16 Social History Query Response Start Date Stop Date Smoking Status Unknown if ever smoked Hospital Discharge Instructions No hospital discharge instructions. Plan of Care Discharge Date 08/06/16 1:45pm Disposition 01 DISCHARGED HOME, SELF-CARE Condition at Discharge Stable Instructions/Education Provided Cellulitis Prescriptions See Medication Section Referrals ROMÁN KAPOOR Address: [address] [place] [id number] Additional Instructions/Education Take ciprofloxacin 500 mg twice daily for 10 days. Call [facility]'s wound care center tomorrow for an appointment. Call [phone] ext: [phone] Elevate feet often to reduce swelling. Follow treatment plan. Care Plan and Goals Physician Care Plan Problem: Cellulitis of feet Goal: Follow up with primary care provider Instructions: Take medications and follow care plan as discussed/written Functional Status No functional status results. Allergies, Adverse Reactions, Alerts Allergen Type Severity Reaction Status Last Updated Latex Allergy Unknown Active 08/06/16 Immunizations Query Response on File Recorded Date/Time Influenza Vaccine Hx NONE 08/06/16 11:25am Tetanus Diptheria Vaccine History 201408/06/16 11:25am Tdap Vaccine Hx 2015 08/06/16 11:16am Vital Signs Acute Vital Signs Vital Response Date/Time Temperature (Fahrenheit) 98.4 deg F (96.8 - 99.1) 08/06/2016 11:08am Temperature (Calculated Celsius) 36.75181 degrees C (36.0 - 37.3) 08/06/2016 11:08am Pulse Rate (adult) 74 bpm (60 - 100) 08/06/2016 1:45pm Respiratory Rate 18 breaths/min (10 - 20) 08/06/2016 1:45pm O2 Sat by Pulse Oximetry 100 % (90 - 100) 08/06/2016 1:45pm Blood Pressure 110/71 mm Hg 08/06/2016 1:45pm Height (Feet) 4 feet 08/06/2016 11:08am Height (Inches) 11.00 inches 08/06/2016 11:08am Weight (Kilograms) 54.500 kg 08/06/2016 11:08am Body Mass Index (BMI) 24.0 08/06/2016 11:08am Results No known relevant diagnostic tests, laboratory data and/or discharge summary. Procedures No known history of procedures. Encounters Encounter Location Arrival/Admit Date Discharge/Depart Date Attending Provider Departed Emergency Room [facility] 08/06/16 11:05am 08/06/16 1: 45pm JIM SELLERS MD Recent Diagnosis
--- NOTE | 2017-02-07 13:28 | NUR ---
PROVIDER DR SELLERS IN TO SEE PATIENT.
[2017-02-07] MEDS ORDERED: OXYB10TA PO (13:29)
--- NOTE | 2017-02-07 13:38 | ERPDOC ---
Departure Disposition Decision Date: Feb 07, 2017 Disposition Decision Time: 18:44 Disposition: 01 DISCHARGED HOME, SELF-CARE Impression Impression Impression: Primary Impression: Diarrhea Additional Impression: Abdominal pain Severity: Moderate Condition: Improved Seen By: Physician only Referrals: ROMÁN KAPOOR (PCP) Patient Instructions: Acute Diarrhea (ED) Problems/Meds/Labs Reviewed?: Yes Medications reviewed and manag: Yes Additional Instructions: Dilaudid 1mg to taper over 6 days: decreasing each day by tablet per day. Please bring a stool sample back to the hospital to rule out C Diff infection. Once you have been one day with out diarrhea, please restart miralax 17 g daily. Follow up care ordered?: Yes Mental Status: Alert, Oriented HPI - Abdominal Pain General Chief Complaint: Nausea,Vomiting,Diarrhea Stated Complaint: N/V/D Time Seen by Provider: 13:28 HPI - Abdominal Pain Initial Comments 41-year-old female with a history of spina bifida. She has had paralysis of her legs essentially since . She developed a pressure ulcer right hip and buttock because of an old wheelchair that did not have cushioning. She was admitted for greater than 6 weeks with IV antibiotics due to osteomyelitis that developed from the pressure ulcer. She was discharged on Sunday, with no antibiotic or pain medication as she had recovered. However she's also had trouble with constipation. She is on 5 different stool softener/bulkking agents and is developed diarrhea starting Sunday. No fevers or chills. She did vomit once today with bilious-looking vomit. She just recently had her PICC line removed as well. She and her boyfriend/ are unable to keep up with bandage changes to the diarrhea. Home health nursing looked at the wounds recommended that she come in and be seen in the ED, they're going to work with the boyfriend/ to help him understand how to better bandage the wounds this evening. Allergies: Coded Allergies: latex (Unverified Allergy, Unknown, 02/07/17) Past History Past Medical History Cardiac: other Neurological: other Musculoskeletal: other Integumentary: other Surgical History Cardiac: radio ablation Family History Family PMH: FOUND: other Social History Substance Use Type: does not use Household Members: significant other Review of Systems Constitutional Constitutional: see HPI Musculoskeletal General: see HPI Integumentary Skin: see HPI Neurological General: see HPI Physical Exam General General Nourishment: well nourished, adult Vitals and Pain First Documented Vital Signs Date Time Temp Pulse Resp B/P Pulse Ox O2 Delivery O2 Flow Rate FiO2 02/07/17 13:08 98.6 94 16 131/66 98 Room Air Weight: Kilograms: 58.000 Height (feet): 4 Height (inches): 11.00 Triage Pain Scale: Normal Exams: Head: Normocephalic w/o trauma CV: Regular rate and rhythm, without murmur or gallop, Pulses 2+ all extremities, capillary refill, <2 seconds all ext., no pedal edema noted Abdomen: Bowel sounds positive, soft, non-tender, non-distended, no hepatosplenomegaly, masses or bruits noted Neurologic: Patient is alert, and oriented, cranial nerves, to observation Psychiatric: Patient exhibits, appropriate attention, emotion and affect Cardiovascular (brief) Cardiac: FOUND: regular rate, regular rhythm, NOT FOUND: pedal edema Abdomen (brief) Abdominal Brief: FOUND: bowel normo active x4, soft Comments Patient has diffuse tenderness throughout the abdomen, cramping during exam and history. Integumentary (brief) Comments Decubitus ulcer right buttock with dressing in place, but dirty. Differential Diagnoses Considering: C-Difficule Colitis, Gastroenteritis, Rotavirus, Other (cellulitis , constipation, diarrhea) Progress Results/Orders Orders Procedure Category Date Status Time Cmp - Comprehensive LAB 02/07/17 Complete Metabolic 13:41 Cbc W/Auto LAB 02/07/17 Complete Diff-Reflex Manual 13:41 Blood Culture TRUDY 02/07/17 In Process 13:41 LAB 02/07/17 Complete Qualitative, Urine 13:41 Gi Panel, Pcr, Stool LAB 02/07/17 Logged 13:41 Iv Lock (Ed Only) EDM 02/07/17 Transmitted 13:41 Normal Saline (Normal PHA 02/07/17 Complete Saline Iv) 13:41 Ondansetron Inj PHA 02/07/17 Complete (Zofran) 13:45 Cdiff Tox B Pcr, LAB 02/07/17 Logged Only, Stool 13:41 Ed Infections EDM 02/07/17 Transmitted Precautions 13:41 Morphine Sulfate PHA 02/07/17 Complete (Morphine) 14:00 Abdomen Acute (Inc. RAD 02/07/17 Resulted Chest) 14:01 Hydromorphone PHA 02/07/17 Complete (Dilaudid) 14:45 UA, LAB 02/07/17 Complete Dip&Micro(Complete) & 14:29 Urine Culture TRUDY 02/07/17 In Process 14:47 Ct Abd/Pelvis CT 02/07/17 Resulted W/Contrast Only 13:41 Lorazepam (Ativan) PHA 02/07/17 Complete 15:45 Iohexol (Omnipaque) PHA 02/07/17 Complete 15:37 Normal Saline (Ns) PHA 02/07/17 Complete 15:37 Saline Flush (Iv PHA 02/07/17 Complete Flush) 15:37 Hydromorphone PHA 02/07/17 Complete (Dilaudid) 16:45 Lab Results Laboratory Tests Test 02/07/17 14:15 02/07/17 14:29 White Blood Count 10.8T/MM3 Red Blood Count 4.65M/MM3 Hemoglobin 13.8GM/DL Hematocrit 41.7% Mean Corpuscular Volume 89.7UM3 Mean Corpuscular Hemoglobin 29.7UUG Mean Corpuscular Hemoglobin Concent 33.1GM/DL RDW Standard Deviation 45.5FL Platelet Count 361T/MM3 Mean Platelet Volume 8.4UM3 Immature Granulocyte % (Auto) 0.3% Neutrophils (%) (Auto) 78.0% Lymphocytes (%) (Auto) 13.3% Monocytes (%) (Auto) 7.5% Eosinophils (%) (Auto) 0.6% Basophils (%) (Auto) 0.3% Absolute Immature Granulocyte (auto 0.03T/MM3 Absolute Neutrophils (auto) 8.4T/MM3 Absolute Lymphocytes (auto) 1.4T/MM3 Absolute Monocytes (auto) 0.8T/MM3 Absolute Eosinophils (auto) 0.1T/MM3 Absolute Basophils (auto) 0.0T/MM3 Turbidity < 20 Sodium Level 150MEQ/L Potassium Level 4.3MEQ/L Chloride Level 108MEQ/L Carbon Dioxide Level 24MEQ/L Anion Gap 18MEQ/L Blood Urea Nitrogen 15.0MG/DL Creatinine 0.5MG/DL Glomerular Filtration Rate Calc 137 BUN/Creatinine Ratio 30RATIO Glucose Level 111MG/DL Calculated Osmolality 290MOSM/KG Calcium Level 9.9MG/DL Total Bilirubin 0.70MG/DL Icterus Index < 2 Aspartate Amino Transf (AST/SGOT) 18U/L Alanine Aminotransferase (ALT/SGPT) 28U/L Alkaline Phosphatase 132U/L Total Protein 8.9G/DL Albumin 4.8G/DL Globulin 4.1G/DL Albumin/Globulin Ratio 1.2RATIO Chemistry Specimen Hemolysis < 15 Urine Collection Type Straight cath Urine Color Yellow Urine Turbidity Cloudy Urine pH 6.0 Urine Specific [place] >=1.030 Urine Protein Trace Urine Glucose (UA) Negative Urine Ketones Negative Urine Blood Trace-intact Urine Nitrite Positive Urine Bilirubin Negative Urine Urobilinogen 0.2EU/DL Urine Leukocyte Esterase Trace Urine RBC 0-1/HPF Urine WBC 10-20/HPF Urine WBC Clumps Few Urine Squamous Epithelial Cells 20-50 Urine Bacteria 4+ Urine Mucus Present Urine Culture Indicated Cult reflexed &setup Urine Test Negative Medications Current ED Medications Sodium Chloride (Normal Saline IV) 1,000 ml @ 250 mls/hr Q4H ONCE IV Last administered on 02/07/17 14:09; Start 02/07/17 at 13:41; Stop 02/07/17 at 17:40 ; Status DC Ondansetron HCl (Zofran) 4 mg O ONCE IV Last administered on 02/07/17 14:08; Start 02/07/17 at 13:45; Stop 02/07/17 at 13:55; Status DC Morphine Sulfate (Morphine) 2 mg O ONCE IV Last administered on 02/07/17 14: 09; Start 02/07/17 at 14:00; Stop 02/07/17 at 14:01; Status DC Hydromorphone HCl (Dilaudid) 1 mg O ONCE IV Last administered on 02/07/17 14: 38; Start 02/07/17 at 14:45; Stop 02/07/17 at 14:46; Status DC Lorazepam (Ativan) 1 mg O ONCE IV Last administered on 02/07/17 15:44; Start 02/07/17 at 15:45; Stop 02/07/17 at 15:46; Status DC Iohexol 1 bottle 1 bottle STK-MED ONCE .ROUTE ; Start 02/07/17 at 15:37; Stop at 15:38; Status DC Sodium Chloride (NS) 100 ml @ As Directed STK-MED ONCE .ROUTE ; Start 02/07/17 at 15:37; Stop 02/07/17 at 15:38; Status DC Sodium Chloride (Iv Flush) 10 ml STK-MED ONCE .ROUTE ; Start 02/07/17 at 15:37; Stop 02/07/17 at 15:38; Status DC Hydromorphone HCl (Dilaudid) 0.5 mg O ONCE IV Last administered on 02/07/17t 16:50; Start 02/07/17 at 16:45; Stop 02/07/17 at 16:46; Status DC Progress Progress Labs return reasonable. Abd xray and CTabd/pelvis normal. Pt unable to give stool sample. Dilaudid helped with pain and diarrhea seemed to resolve the hours she was here. I think this is at least partly narcotic withdrawl after being on them so long during hospital admission. I will discharge her with an order for stool sample, and instructions to restart MiraLAX after 1 day without diarrhea. Otherwise unconcerned she will become constipated again. I also would like to taper her off the Dilaudid, doing a 6 day taper, to help avoid the diarrhea. She will follow-up with her primary care provider. JIM SELLERS MD Feb 07, 2017 13:38
[2017-02-07] MEDS ORDERED: NORMAL SALINE 1,000 ML IV ONE (13:41)
[2017-02-07] MEDS ORDERED: ONDANSETRON 4mg/2ml INJECTION IV ONE (13:45)
--- OUTSIDE RECORDS SUMMARY | 2017-02-07 13:48 | XMS REPORT | Continuity of Care Document ---
Author Author [facility] Organization [facility] Address Unknown Phone Unavailable Care Team Providers Care Claim Analyst Name Role Phone ANTWON, LISA Faust MD Primary Care Physician [phone] Insurance Providers Payer Name Policy Number Subscriber Name Relationship [facility] [employer] [id number] Carmen Hernandez 19 Self / Same As [...] DAILY PRN PAIN 90 Qty 12/17/14 Active [place]-3 Acid Ethyl Esters 2 Gm ORAL TWICE [...] GINA AmpliPrep/GINA TaqMan HBV test, version 2.0 ([employer] Test Performed by: [place] [address] Meat Hostess: Art Henry III, M.D. Hepatitis B Surface [...] 2012 6:55pm 2+ H Negative Urine Specific [place] August 06, 2014 9:30am 1.025 1.005-1.030 Urine [...] procedures. Encounters Encounter Location Date/Time Discharged Inpatient [facility] 11/11/14 3:04pm Recent Diagnosis Cellulitis of leg Spina bifida Impaired mobility Self-care deficit for bathing and hygiene Self-care deficit for dressing and grooming Self-care deficit for feeding Self-care deficit for toileting
--- OUTSIDE RECORDS SUMMARY | 2017-02-07 13:48 | XMS REPORT ---
Author Author [employer] Organization Unknown Address Unknown Phone Unavailable Care Team Providers Care Tube Teller Name Role Phone DO CUEVAS ROBERT PP [...]
--- OUTSIDE RECORDS SUMMARY | 2017-02-07 13:48 | XMS REPORT | Continuity of Care Document ---
Author Author [facility] Organization [facility] Address Unknown Phone Unavailable Care Team Providers Care Gas Distribution Supervisor Name Role Phone Jerrod Small Primary Care Physician [phone] Source Comments Some departments are not documenting in the electronic medical record. If you do not see the information that you expected, contact Release of Information in the Health Information Management department at [phone] for further assistance in locating additional records.[facility] Active Allergies and Adverse Reactions Allergen [...]
--- OUTSIDE RECORDS SUMMARY | 2017-02-07 13:49 | XMS REPORT ---
Author Author [employer] Organization Unknown Address Unknown Phone Unavailable Care Team Providers Care Lawn Care Worker Name Role Phone DO CUEVAS ROBERT PP [...] L (65-99 MG/DL) *GFR EST NON AFR MONGOLIAN >90 ML/MIN *GFR EST AFR AMER >90 [...] PM* CULTURE BLOOD (Preliminary Result) Specimen Number: [id number] Sample Collection Date/Time: 11/24/2016 4:31 PM Specimen Source: Blood PERIPHRL CULTURE BLOOD: No growth after 24 hours of incubation, testing to continue for an additional 96 hours. Microbiology from 11/24/2016 4:24 PM* CULTURE BLOOD (Preliminary Result) Specimen Number: [id number] Sample Collection Date/Time: 11/24/2016 4:24 PM Specimen Source: Blood PERIPHRL CULTURE BLOOD: No growth after 24 hours of incubation, testing to continue for an additional 96 hours. Microbiology from 11/24/2016 3:42 PM* CULTURE URINE (Preliminary Result) Specimen Number: [id number] Sample Collection Date/Time: 11/24/2016 3:42 PM Specimen [...] 11/24/2016 3:30 PM* CULTURE WOUND Specimen Number: [id number] Sample Collection Date/Time: 11/24/2016 3:30 PM Specimen Source: Wound Right buttock CULTURE WOUND: Normal skin jordi *GRAM STAIN: Rare Epithelial cells Rare RBC's No WBC's Many Gram positive cocci Many Gram negative bacilli * *GRAM STAIN Specimen Number: [id number] Sample Collection Date/Time: 11/24/2016 3:30 PM Specimen [...]
--- OUTSIDE RECORDS SUMMARY | 2017-02-07 13:49 | XMS REPORT | Continuity of Care Document ---
Author Author [facility] Address Unknown Phone Unavailable Allergies Active Description Code Type Severity Reaction Onset Reported/Identified Relationship to Patient Clinical Status Yes latex [id number] Drug Allergy Mild rash 03/21/2013 Yes morphine [id number] Drug Allergy Mild PANIC ATTACH 05/10/2013 Yes orphenadrine [id number] Drug Allergy Unknown ANXIOUSNESS 05/14/2014 Medications Problems [...] LISA M Ot 741.93 12/16/2014 ANTWON SAWYER, LSIA M Ot 288.60 12/16/2014 ANTWON SAWYER, LISA [...] Faust Ot 591 12/18/2014 ANTWON SAWYER, LISA Faust Ot 724.2 12/18/2014 ANTWON SAWYER, LISA Faust [...] LISA KAPOOR MD Ot 591 12/18/2014 LISA KAPOOR MD Ot 724.2 12/18/2014 LISA KAPOOR MD [...] - 11/24/16 16:24 *GFR EST NON AFR CZECH >90 mL/min NR *GRFA EST AFR AMER [...] Status Pt. Type Provider Facility Loc./Unit Complaint [id number] 11/11/2014 11:59:00 2014 23:59:59 CLS Outpatient TARI SAWYER, [facility] [id number] 09/23/2014 05:51:00 2013 23:59:59 CLS Outpatient ANTWON SAWYER [facility] LAB [id number] 08/31/2014 05:43:00 2013 23:59:59 CLS Outpatient ANTWON SAWYER [facility] LAB [id number] 08/06/2014 09:54:00 2013 23:59:59 CLS Outpatient ANTWON SAWYER [facility] LAB [id number] 07/28/2014 05:52:00 2013 23:59:59 CLS Outpatient ANTWON SAWYER [facility] LAB [id number] 07/06/2014 12:51:00 2013 23:59:59 CLS Outpatient ANTWON SAWYER [facility] LAB [id number] 06/23/2014 05:50:00 2013 23:59:59 CLS Outpatient ANTWON SAWYER [facility] LAB [id number] 05/13/2014 01:35:00 2013 23:59:59 CLS Outpatient [facility] EMS [id number] 05/13/2014 01:42:00 2013 03:27:00 DIS Emergency [facility] ED [id number] 05/11/2014 12:50:00 2013 23:59:59 CLS Outpatient ANTWON SAWYER [facility] [id number] 03/20/2014 06:45:00 2013 23:59:59 CLS Outpatient ANTWON SAWYER [facility] LAB [id number] 02/16/2014 03:48:00 2013 23:59:59 CLS Outpatient ANTWON SAWYER [facility] LAB [id number] 02/07/2014 09:35:00 2013 23:59:59 CLS Outpatient ANTWON SAWYER, [facility] LAB [id number] 02/02/2014 16:33:00 2013 23:59:59 CLS Outpatient ANTWON SAWYER, [facility] RAD [id number] 01/31/2014 05:51:00 2013 23:59:59 CLS Outpatient ANTWON SAWYER, [facility] LAB [id number] 01/05/2014 04:24:00 2013 23:59:59 CLS Outpatient ANTWON SAWYER, [facility] LAB [id number] 11/03/2013 07:45:00 2013 23:59:59 CLS Outpatient ANTWON SAWYER, [facility] LAB [id number] 10/18/2013 11:30:00 2012 11:53:00 DIS Inpatient CLAUDIA SAWYER, [facility] MED/SURG [id number] 10/18/2013 00:01:00 2012 23:59:59 CLS Outpatient DANIE SAWYER, [facility] EMS [id number] 10/05/2013 17:45:00 2012 17:40:00 DIS Inpatient SARAI SAWYER, [facility] MED/SURG [id number] 10/05/2013 16:06:00 2012 23:59:59 CLS Outpatient CHUN SAWYER, [facility] EMS [id number] 07/21/2013 23:08:00 2012 23:50:00 DIS Emergency ISIDRO SAWYER, [facility] ED [id number] 06/23/2013 19:01:00 2012 22:00:00 DIS Emergency DANIE SAWYER, [facility] ED [id number] 05/29/2013 22:34:00 2012 23:04:00 DIS Emergency BERENICE SAWYER, [facility] ED [id number] 11/11/2014 15:04:00 ACT Inpatient ANTWON SAWYER, [facility] MED/SURG [id number] 05/10/2013 21:36:00 Document Registration [id number] 05/10/2013 17:54:00 Document Registration [id number] 05/05/2013 14:38:00 Document Registration [id number] 03/31/2013 13:00:00 Document Registration [id number] 03/21/2013 21:00:00 Document Registration [id number] 06/10/2012 18:18:00 Document Registration
--- OUTSIDE RECORDS SUMMARY | 2017-02-07 13:49 | XMS REPORT ---
Author Author [facility] Organization Unknown Address Unknown Phone Unavailable Care Team Providers Care Fish Warden Name Role Phone DO CUEVAS ROBERT PP [...]
--- OUTSIDE RECORDS SUMMARY | 2017-02-07 13:50 | XMS REPORT ---
Author Author [facility] Organization Unknown Address Unknown Phone Unavailable Care Team Providers Care Spa Host Name Role Phone DO CUEVAS ROBERT PP [...] 8:30 AM * Address # 1 : [facility]: [address] [place]- [phone] or * #2 Office appointment: : Dr. Cuevas * #2 Date/Time : 03/24/2016 11:15 AM * Address # 2 : [facility]: [address] [place] - or * #3 Office appointment: : BRIGITTE Canseco * #3 Date/Time : 03/30/2016 1:40 AM * Address # 3 : [facility]: [address] [place]- [phone] or Treatment Plan from 03/23/2016 11:20 AM:* [...] pending culture results. Clinical [facility]. Care management will continue to follow and assess for discharge needs. Treatment Plan from 03/21/2016 11:00 AM:* Care Management Note : Skin/dipper clock and watch hands has assessed patient with wound care instructions [...] the responsibility of the patient or patient workforce services representative to confirm the list of medications with [...]
--- OUTSIDE RECORDS SUMMARY | 2017-02-07 13:50 | XMS REPORT ---
Author Author [employer] [employer] Organization Unknown Address Unknown Phone Unavailable Care Team Providers Care Customer Assistance Representative Name Role Phone DO CUEVAS ROBERT PP [...]
[2017-02-07] MEDS ORDERED: MORPHINE SULFATE 2 MG SYRINGE IV ONE (14:00)
[2017-02-07 14:23] LABS: BASOPHILS % (AUTO) 0.3 % (0-2); EOSINOPHILS # (AUTO) 0.1 T/MM3 (0-0.5); EOSINOPHILS % (AUTO) 0.6 % (0-4); HCT - HEMATOCRIT 41.7 % (36-46); HGB - HEMOGLOBIN 13.8 GM/DL (12-16); IMMATURE GRANULOCYTE # (AUTO) 0.03 T/MM3 (0.00-0.03); IMMATURE GRANULOCYTE % (AUTO) 0.3 % (0.0-0.5); LYMPHOCYTES # (AUTO) 1.4 T/MM3 (1-4.8); LYMPHOCYTES % (AUTO) 13.3 % (23-45); MEAN CORPUSCULAR HGB 29.7 UUG (26-34); MEAN CORPUSCULAR HGB CONC(MCHC 33.1 GM/DL (31-37); MEAN CORPUSCULAR VOLUME 89.7 UM3 (80-100); MEAN PLATELET VOLUME 8.4 UM3 (9.4-12.4); MONOCYTES # (AUTO) 0.8 T/MM3 (0-0.8); MONOCYTES % (AUTO) 7.5 % (0-9.0); NEUTROPHILS #(AUTO)-ABSOLUTE 8.4 T/MM3 (1.8-7.7); RED BLOOD COUNT 4.65 M/MM3 (4.00-5.20); WBC - WHITE BLOOD COUNT 10.8 T/MM3 (4.5-11.0)
[2017-02-07 14:32] LABS: ALBUMIN 4.8 G/DL (3.5-5.0); ALBUMIN/GLOBULIN RATIO 1.2 RATIO (1.1-2.2); ALKALINE PHOSPHATASE 132 U/L (38-126); ALT (SGPT) 28 U/L (9-52); ANION GAP 18 MEQ/L (5-15); AST (SGOT) 18 U/L (14-36); BUN/CREATININE RATIO 30 RATIO (6-26); CALCIUM 9.9 MG/DL (8.4-10.2); CHLORIDE 108 MEQ/L (98-107); CO2 - CARBON DIOXIDE 24 MEQ/L (22-30); CREATININE 0.5 MG/DL (0.7-1.2); GLOMERULAR FILTRATION RATE 137; GLUCOSE 111 MG/DL (65-110); POTASSIUM 4.3 MEQ/L (3.6-5); SODIUM 150 MEQ/L (134-144); TOTAL PROTEIN 8.9 G/DL (6.3-8.2)
--- NOTE | 2017-02-07 14:34 | NUR ---
WOUND WOUND DRESSING ON RT BUTTOCK IS CLEAN, DRY, AND INTACT. NO INCONTINENCE OF STOOL NOTED.
[2017-02-07 14:38] LABS: BLOOD, URINE TRACE-INTACT (NEGATIVE); COLOR,URINE YELLOW (YELLOW); LEUKOCYTE ESTERASE ,URINE TRACE (NEGATIVE); NITRITE,URINE POSITIVE (NEGATIVE); UROBILINOGEN,URINE 0.2 EU/DL (NORMAL)
[2017-02-07] MEDS ORDERED: HYDROMORPHONE 2mg/ml INJECTION IV ONE ×2 (14:45→16:45)
[2017-02-07 14:46] LABS: BACTERIA,URINE 4+ (NEGATIVE); MUCUS,URINE PRESENT; RBC,URINE 0-1 /HPF (0-3); SQUAMOUS EPITHELIAL CELL,UR 20-50
[2017-02-07 14:47] LABS: WBC CLUMPS,URINE FEW
--- NOTE | 2017-02-07 14:55 | NUR ---
TO XRAY PER CART. IVF CONTINUING ORDERED.
--- NOTE | 2017-02-07 15:05 | NUR ---
BACK FROM XRAY
--- NOTE | 2017-02-07 15:13 | DI ---
Indication: ITS.REASON: abd pain Procedure: ABDOMEN ACUTE (INC. CHEST): Encounter: Initial Comparison: None Technique: An AP view of the chest as well as upright and supine AP abdominal radiographs were obtained. Findings: Lungs and airways: Low lung volumes with associated left mid to lower lung zone platelike atelectasis. No other focal/confluent airspace consolidation. Normal pulmonary vasculature. Pleura: No pleural effusion or pneumothorax. Heart and mediastinum: The cardiomediastinal silhouette and great vessels are within normal limits. Abdomen: Nonobstructive bowel gas pattern. Mild colonic gas and stool. No intraperitoneal free air. Osseous structures and soft tissues: No acute osseous abnormality is seen. Prior postoperative changes of the right hip. 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 Impression: 1. Mild colonic gas and stool with a nonobstructive bowel gas pattern. 2. No acute cardiopulmonary process. .
[2017-02-07] MEDS ORDERED: NORMAL SALINE 100 ML ONE (15:37)
[2017-02-07] MEDS ORDERED: SALINE FLUSH 10ml SYRINGE ONE (15:37)
[2017-02-07] MEDS ORDERED: IOHEXOL 300 MG/ML 75ml INJECTION ONE (15:37)
[2017-02-07] MEDS ORDERED: LORAZEPAM 2 MG/ML INJECTION IV ONE (15:45)
--- NOTE | 2017-02-07 15:50 | NUR ---
TO CT PER CART.
--- NOTE | 2017-02-07 16:04 | NUR ---
BACK FROM CT
--- NOTE | 2017-02-07 16:09 | NUR ---
STATUS PATIENT RATES PAIN 9/10. STATES, "IT IS CRAMPING AGAIN".
--- NOTE | 2017-02-07 16:21 | DI ---
Indication: ITS.REASON: Abdominal pain Procedure: CT ABD/PELVIS W/CONTRAST ONLY: Encounter: Subsequent Comparison: Acute abdominal series of the same day Technique: Axial CT images were performed through the abdomen and pelvis after the administration of intravenous contrast. Coronal and sagittal reformatted images were also obtained. Automated Exposure Control and Iterative Reconstruction dose reducing techniques were utilized. Contrast: Omnipaque 300 100 mL Findings: Lower lungs: Mild bibasilar atelectasis without focal airspace consolidation. The visualized heart is normal in size without pericardial effusion. Abdomen: The liver enhances homogeneously without focal mass. The gallbladder is distended and appears normal. No biliary ductal dilatation. The pancreas enhances homogeneously. The spleen is normal in size and enhancement. The adrenal glands are within normal limits. The kidneys enhance symmetrically and appear normal. The ureters are normal in course and caliber. The abdominal aorta is normal in course and caliber. The mesenteric arterial and venous structures appear patent. The stomach is partially distended and appears normal. Small bowel loops are normal in caliber without evidence of obstruction. The colon appears normal. The appendix is normal. No intra-abdominal free air, free fluid, focal fluid collections, or lymphadenopathy. Pelvis: The bladder is distended and appears normal. Air within the bladder suspected to be related to prior catheterization. 2.8 cm left ovarian cyst. The uterus and ovaries appear otherwise grossly normal. No pelvic free fluid or lymphadenopathy. Osseous structures and soft tissues: No acute osseous abnormality. Postoperative changes of the right hip. Dysplasia of the bilateral hips. Lower lumbar spinal dysraphism noted. Impression: 1. 2.8 cm likely physiologic left ovarian cyst without pelvic free fluid. 2. No other acute abdominal/pelvic process identified by contrast-enhanced CT. .
--- NOTE | 2017-02-07 16:59 | NUR ---
STATUS PATIENT HAS HAD NO STOOL WHILE IN ED. NO STOOL SPECIMEN COLLECTED.
[2017-02-07 19:04] VITALS: BP 115/67; PULSE 100; RESP 18; TEMP 98.6; O2SAT 97
--- NOTE | 2017-02-09 12:07 | NUR ---
CULTURE RESULTS/PT CONTACT LEFT VOICEMAIL FOR PT AND PT CALLED RIGHT BACK, CONFIRMED HER NAME/D0B AND ALLERGIES OVER THE PHONE. PT INFORMED OF URINE CULTURE AND NEED FOR AN ANTIBIOTIC, PT REQUESTS RX BE CALLED INTO [facility] AND SHE WILL HAVE HER HOME HEALTH NURSE PICK IT UP THIS AFTERNOON. PT VERBAILZED UNDERSTANDING OF INSTRUCTIONS AND STATES SHE WILL GO OVER THEM AGAIN ONCE HOME HEALTH ARRIVES. SPOKE TO PHARMACIST AT [facility], BACTRIM DS 1 TAB PO BID X10 DAYS, RX PLACED IN HIM FILE AND CULTURE UPDATE RECORDED IN CHANGE OF TREATMENT LOG.
== END 2017-02-07 19:04 | disposition home or self-care (01) ==
LOC: ED 13:05
DX: R19.7 Diarrhea, unspecified (principal); R11.10 Vomiting, unspecified; R10.9 Unspecified abdominal pain
CPT/HCPCS: 36415; 51701; 74022; 74177; 80053; 81001; 81025; 85025; 87040; 87077; 87086; 87186; 96361; 96374; 96375; 96376; 99284; J1170; J2060; J2405; J7030; J7050; Q9967

== ENCOUNTER → 2017-02-09 | Outpatient (CLI) | payer MEDICAID ==
[~2017-02-09] MED LIST changes: -CIPR-280 PO; -DIPH25CA84 PO; +OXYB10TA PO; -OXYB15TA PO
== END ==
LOC: LABN 09:57
PROVIDERS: ATTEND Family Medicine
DX: R19.7 Diarrhea, unspecified (principal)
CPT/HCPCS: 87507

== ENCOUNTER → 2017-02-15 | Outpatient (CLI) | payer MEDICAID ==
[~2017-02-15] MED LIST changes: +CALMOSEPTINE OINTMENT 3.5 G PACKET TOP ONE; +SALINE FLUSH 10ml SYRINGE IVF ONE
== END ==
LOC: NWCC 08:22
PROVIDERS: ATTEND Internal Medicine
DX: L89.314 Pressure ulcer of right buttock, stage 4 (principal); L89.892 Pressure ulcer of other site, stage 2; Q05.2 Lumbar spina bifida with hydrocephalus; R33.9 Retention of urine, unspecified; R32 Unspecified urinary incontinence; F32.9 Major depressive disorder, single episode, unspecified; Z87.898 Personal history of other specified conditions; I10 Essential (primary) hypertension; G82.20 Paraplegia, unspecified; B96.89 Other specified bacterial agents as the cause of diseases classified elsewhere
CPT/HCPCS: 11042; 87070; 87075; 87147; 87205; A6209; A6210; A6212; G0463

== ENCOUNTER → 2017-02-22 | Outpatient (CLI) | payer MEDICAID ==
[~2017-02-22] MED LIST changes: -CALMOSEPTINE OINTMENT 3.5 G PACKET TOP ONE
== END ==
LOC: NWCC 13:15
PROVIDERS: ATTEND Internal Medicine
DX: L89.314 Pressure ulcer of right buttock, stage 4 (principal); L89.892 Pressure ulcer of other site, stage 2; S41.101A Unspecified open wound of right upper arm, initial encounter; Q05.9 Spina bifida, unspecified; G82.20 Paraplegia, unspecified; L72.3 Sebaceous cyst; M86.651 Other chronic osteomyelitis, right thigh
CPT/HCPCS: 11042; A6021; A6209; G0463

== ENCOUNTER → 2017-02-26 | Outpatient (CLI) | payer MEDICAID | LOC: NWCC 10:36 | PROVIDERS: ATTEND Internal Medicine | DX: L89.314 Pressure ulcer of right buttock, stage 4 (principal); L89.892 Pressure ulcer of other site, stage 2; S41.101A Unspecified open wound of right upper arm, initial encounter; Q05.2 Lumbar spina bifida with hydrocephalus; G82.20 Paraplegia, unspecified; L72.3 Sebaceous cyst; Z99.3 Dependence on wheelchair | CPT/HCPCS: 97605; A6021; A6210; A6237; G0463 ==